=== PATIENT | female | born 1950 | race Caucasian/White ===

== ENCOUNTER 2016-08-10 21:00 | Inpatient (IN) | payer OTHER, MEDICARE ==
[~2016-08-10] VITALS: Ht 157.5 cm; Wt 66.0 kg
[~2016-08-10 21:00] MED LIST: ALL220TA PO; ESTR0.5T PO; ESTRTAB6 PO; LISI-357 PO; REDCAP9 PO; VITA100020 SL; VITA200017 OR
[2016-08-10 21:03] VITALS: BP 209/103; PULSE 72; RESP 18; TEMP 97.9; O2SAT 97
[2016-08-10 21:10] VITALS: BP 186/88; PULSE 64; RESP 16; TEMP 97.9; O2SAT 96
--- NOTE | 2016-08-10 21:21 | PD ---
HPI Chief Complaint: Chest Pain Time Seen by Provider: 21:21 Travel History International Travel<30 days: No Contact w/Intl Traveler<30days: No Traveled to known affect area: No History of Present Illness HPI 66-year-old female with no history of heart disease or angina in the past presents the emergency department with intermittent chest pain with bilateral arm radiation off-and-on for the past week. Patient states the pain is progressed and been consistent all day today with radiation into the left neck and jaw. Patient denies nausea vomiting or fever. She denies cough or significant shortness of breath. Patient states she tried to take a nap today which actually made her symptoms somewhat worse. She states her pain at this time is 8 out of 10. She takes no medications including no aspirin. She is not diabetic. She is a nonsmoker. She has no known drug allergies. PFSH Past Medical History Cancer: Yes (BASAL CELL SKIN CA) Cardiovascular Problems: No High Cholesterol: Yes Diabetes: No Diminished Hearing: No Endocrine: No Genitourinary: Yes (HISTORY OF KIDNEY STONES X 2) Hepatitis: No Hiatal Hernia: No Hypertension: Yes Immune Disorder: No Medical other: Yes (PROLAPSED BLADDER; HIGH CHOLESTEROL ) Musculoskeletal: No Neurologic: No Psychiatric: No Reproductive: Yes (HYSTERECTOMY, COMPLETE 1999) Respiratory: No Immunizations Current: Yes Thyroid Disease: No Menopausal: Yes : 4 Para: 4 Miscarriage: 0 : 0 Past Surgical History Abdominal Surgery: No AICD: No Body Medical Devices: NONE Cardiac Surgery: No Ear Surgery: No Endocrine Surgery: No Eye Surgery: No Genitourinary Surgery: Yes (KIDNEY STONES LITHO X 2) Gynecologic Surgery: Yes (TOTAL HYSTERECTOMY ) Hysterectomy: Yes (1999) Joint Replacement: No Oral Surgery: No Pacemaker: No Thoracic Surgery: No Other Surgery: Yes (MASTOID L SURGERY 1999) Social History Alcohol Use: No Tobacco Use: No Substance Use: No Allergies-Medications (Allergen,Severity, Reaction): Coded Allergies: No Known Allergies (Unverified , 10/14/14) Reported Meds & Prescriptions Reported Meds & Active Scripts Active No Active Prescriptions or Reported Medications Review of Systems Except as stated in HPI: all other systems reviewed are Neg General / Constitutional: No: Fever Eyes: No: Visual changes HENT: No: Headaches Cardiovascular: No: Palpitations, Irregular Rhythm, Tachycardia, Diaphoresis, Syncope, Dyspnea on exertion, Varicosities, Edema, Cyanosis, Varicosities, Phlebitis, Claudication Respiratory: No: Shortness of Breath Gastrointestinal: Positive: Nausea, No: Vomiting, Diarrhea, Abdominal Pain Genitourinary: No: Dysuria Musculoskeletal: No: Pain Skin: No Rash Neurologic: No: Weakness Psychiatric: No: Depression Endocrine: No: Polydipsia Hematologic/Lymphatic: No: Easy Bruising Physical Exam Narrative GENERAL: Patient appears mildly anxious but otherwise no significant distress. SKIN: Warm and dry. Normal color. Normal turgor. HEAD: Atraumatic. Normocephalic. EYES: Pupils equal and round. No scleral icterus. No injection or drainage. ENT: No nasal bleeding or discharge. Mucous membranes pink and moist. Pharynx is clear. Airway is patent. NECK: Trachea midline. No JVD. Neck is supple nontender. CARDIOVASCULAR: Regular rate and rhythm. No murmurs gallops or rubs appreciated. RESPIRATORY: No accessory muscle use. Clear to auscultation. Breath sounds equal bilaterally. GASTROINTESTINAL: Abdomen soft, non-tender, nondistended. Hepatic and splenic margins not palpable. MUSCULOSKELETAL: Extremities without clubbing, cyanosis, or edema. No obvious deformities. NEUROLOGICAL: Awake and alert. No obvious cranial nerve deficits. Motor grossly within normal limits. Five out of 5 muscle strength in the arms and legs. Normal speech. PSYCHIATRIC: Appropriate mood and affect; insight and judgment normal. Data Data Last Documented VS Vital Signs Date Time Temp Pulse Resp B/P Pulse Ox O2 Delivery O2 Flow Rate FiO2 08/10/16 22:00 62 14 168/81 Room Air 08/10/16 21:10 97.9 96 Orders Electrocardiogram (08/10/16 21:24) Ckmb (Isoenzyme) Profile (08/10/16 21:24) Complete Blood Count With Diff (08/10/16 21:24) Comprehensive Metabolic Panel (08/10/16 21:24) Magnesium (Mg) (08/10/16 21:24) Prothrombin Time / Inr (Pt) (08/10/16 21:24) Act Partial Throm Time (Ptt) (08/10/16 21:24) Troponin I (08/10/16 21:24) Chest, Single Ap (08/10/16 21:24) Ecg Monitoring (08/10/16 21:24) Bilateral Bp Monitoring (08/10/16 21:24) Iv Access Insert/Monitor (08/10/16 21:24) Oximetry (08/10/16 21:24) Oxygen Administration (08/10/16 21:24) Aspirin Chew (Aspirin Chew) (08/10/16 21:30) Morphine Inj (Morphine Inj) (08/10/16 21:30) Sodium Chloride 0.9% Flush (Ns Flush) (08/10/16 21:30) Nitroglycerin Sl (Nitrostat Sl) (08/10/16 21:30) Metoprolol Tartrate Inj (Lopressor Inj) (08/10/16 21:30) Sodium Chlorid 0.9% 500 Ml Inj (Ns 500 M (08/10/16 21:30) Labs Laboratory Tests Test 08/10/16 21:35 White Blood Count 8.6 TH/MM3 Red Blood Count 4.60 MIL/MM3 Hemoglobin 14.0 GM/DL Hematocrit 40.7 % Mean Corpuscular Volume 88.4 FL Mean Corpuscular Hemoglobin 30.3 PG Mean Corpuscular Hemoglobin 34.3 % Concent Red Cell Distribution Width 13.6 % Platelet Count 303 TH/MM3 Mean Platelet Volume 8.3 FL Neutrophils (%) (Auto) 48.7 % Lymphocytes (%) (Auto) 34.6 % Monocytes (%) (Auto) 8.1 % Eosinophils (%) (Auto) 3.0 % Basophils (%) (Auto) 5.6 % Neutrophils # (Auto) 4.2 TH/MM3 Lymphocytes # (Auto) 3.0 TH/MM3 Monocytes # (Auto) 0.7 TH/MM3 Eosinophils # (Auto) 0.3 TH/MM3 Basophils # (Auto) 0.5 TH/MM3 CBC Comment DIFF FINAL Differential Comment Prothrombin Time 10.5 SEC Prothromb Time International 1.0 RATIO Ratio Activated Partial 28.0 SEC Thromboplast Time Sodium Level 142 MEQ/L Potassium Level 4.0 MEQ/L Chloride Level 105 MEQ/L Carbon Dioxide Level 32.1 MEQ/L Anion Gap 5 MEQ/L Blood Urea Nitrogen 12 MG/DL Creatinine 0.72 MG/DL Estimat Glomerular Filtration 81 ML/MIN Rate Random Glucose 106 MG/DL Calcium Level 9.3 MG/DL Magnesium Level 2.0 MG/DL Aspartate Amino Transf 14 U/L (AST/SGOT) Alanine Aminotransferase 21 U/L (ALT/SGPT) Albumin 3.6 GM/DL MDM Medical Decision Making Medical Screen Exam Complete: Yes Emergency Medical Condition: Yes Differential Diagnosis Atypical chest pain. Acute PR. Non-STEMI. Angina. Narrative Course Patient appears medically stable at time of exam although somewhat hypertensive on review of vital signs. Labs ordered including CBC, CMP, cardiac panel. EKG is performed showing sinus bradycardia of 59 beats per minute with a minimal ST depression. This is reviewed with Dr. Loya. IV access is obtained and the patient is given 2 mg morphine IV. Patient is given 324 mg chewable aspirin as well as 0.4 mg sublingual nitroglycerin 3. Patient is given metoprolol 5 mg 3 per protocol. Chest x-ray is ordered. X-ray shows no acute process per radiologist. Patient took the aspirin, and one sublingual nitroglycerin and then refused any more. Patient refused 2 mg of morphine IV. Labs are currently pending at 2300 hrs. Care of the patient is assumed by Dr. Hoffman. Final disposition and diagnosis will be determined by her. Scripts No Active Prescriptions or Reported Meds Condition: Stable Ruperto Gabriel Aug 10, 2016 21:21 Ruperto Gabriel Aug 10, 2016 21:21
[2016-08-10] MEDS ORDERED: SODIUM CHLORIDE 0.9% FLUSH 10 ML FLUSH IVF PRN (21:30)
[2016-08-10] MEDS: METOPROLOL TARTRATE 5 MG/5 ML VIAL IVS SCH ×3 (21:30→21:40)
[2016-08-10] MEDS ORDERED: ASPIRIN 81 MG CHEW TAB PO ONE (21:30)
[2016-08-10] MEDS ORDERED: MORPHINE SULFATE 4 MG/ML INJ IV PUSH ONE (21:30)
[2016-08-10] MEDS ORDERED: SODIUM CHLORID 0.9% 500 ML INJ 500 ML IV ONE (21:30)
[2016-08-10] MEDS: NITROGLYCERIN 0.4 MG SL 25 TABS/BTL SL SCH ×3 (21:35→21:51)
[2016-08-10 22:00] VITALS: BP 168/81; PULSE 62; RESP 14
[2016-08-10 22:20] LABS: PROTHROMBIN TIME - PATIENT 10.5 SEC (9.8-11.6)
--- NOTE | 2016-08-10 22:28 | RADRPT ---
EXAM DATE/TIME: 08/10/2016 21:29 [facility] COMPARISON: CHEST SINGLE AP, February 05, 2013, 4:51. INDICATIONS : Chest pain starting today MEDICAL HISTORY : None. SURGICAL HISTORY : None. ENCOUNTER: Initial ACUITY: 1 day PAIN SCORE: 8/10 LOCATION: Left chest FINDINGS: Cardiomegaly. Minimal basilar atelectasis. No effusion. No pneumothorax. CONCLUSION: 1. Minimal basilar atelectasis. Cardiomegaly. No pneumothorax. Kike Fischer MD on August 10, 2016 at 22:26 Board Certified Radiologist. This report was verified electronically.
[2016-08-10 22:36] LABS: ALT (GPT) 21 U/L (10-53); ANION GAP 5 MEQ/L (5-15); AST (GOT) 14 U/L (15-37); BICARBONATE 32.1 MEQ/L (21.0-32.0); BLOOD UREA NITROGEN 12 MG/DL (7-18); CHLORIDE 105 MEQ/L (98-107); GLOMERULAR FILTRATION RATE 81 ML/MIN (>89); SODIUM (NA) 142 MEQ/L (136-145)
[2016-08-10 22:39] LABS: ALKALINE PHOSPHATASE 118 U/L (45-117); TOTAL BILIRUBIN ADULT 0.5 MG/DL (0.2-1.0)
[2016-08-10 22:53] LABS: AUTOMATED NEUTROPHIL # 4.2 TH/MM3 (1.8-7.7); BASOPHIL # 0.5 TH/MM3 (0-0.2); BASOPHIL % 5.6 % (0.0-2.0); EOSINOPHIL # 0.3 TH/MM3 (0-0.4); HEMATOCRIT 40.7 % (35.0-46.0); LYMPH % 34.6 % (9.0-44.0); MEAN CELL VOLUME 88.4 FL (80.0-100.0); MEAN CORPUSCULAR HEMOGLOBIN 30.3 PG (27.0-34.0); MEAN CORPUSCULAR HGB CONC 34.3 % (32.0-36.0); MONO % 8.1 % (0.0-8.0); NEUT % 48.7 % (16.0-70.0); PLATELET COUNT 303 TH/MM3 (150-450); RED CELL DISTRIBUTION WIDTH 13.6 % (11.6-17.2); WHITE BLOOD COUNT 8.6 TH/MM3 (4.0-11.0)
[2016-08-10 22:55] LABS: HEMO FLAGS DIFF FINAL
[2016-08-10 23:23] LABS: CREATINE KINASE 71 U/L (26-192)
--- NOTE | 2016-08-10 23:56 | PD ---
Physical Exam Narrative I, Dr. Hoffman, have reviewed the advance practice practitioner's documentation and am in agreement, met with the patient face to face, made the diagnosis, and the medical decision making was done by me. *My assessment and Findings: Patient is a 66-year-old female who comes in complaining of chest pain. She says she has had episodes of chest pain all week, but today got worse. She reports that the pain radiates to both arms and upper jaw. She does report some shortness of breath as well. Data Data Last Documented VS Vital Signs Date Time Temp Pulse Resp B/P Pulse Ox O2 Delivery O2 Flow Rate FiO2 08/10/16 22:00 62 14 168/81 Room Air 08/10/16 21:10 97.9 96 Orders Electrocardiogram (08/10/16 21:24) Ckmb (Isoenzyme) Profile (08/10/16 21:24) Complete Blood Count With Diff (08/10/16 21:24) Comprehensive Metabolic Panel (08/10/16 21:24) Magnesium (Mg) (08/10/16 21:24) Prothrombin Time / Inr (Pt) (08/10/16 21:24) Act Partial Throm Time (Ptt) (08/10/16 21:24) Troponin I (08/10/16 21:24) Chest, Single Ap (08/10/16 21:24) Ecg Monitoring (08/10/16 21:24) Bilateral Bp Monitoring (08/10/16 21:24) Iv Access Insert/Monitor (08/10/16 21:24) Oximetry (08/10/16 21:24) Oxygen Administration (08/10/16 21:24) Aspirin Chew (Aspirin Chew) (08/10/16 21:30) Morphine Inj (Morphine Inj) (08/10/16 21:30) Sodium Chloride 0.9% Flush (Ns Flush) (08/10/16 21:30) Nitroglycerin Sl (Nitrostat Sl) (08/10/16 21:30) Metoprolol Tartrate Inj (Lopressor Inj) (08/10/16 21:30) Sodium Chlorid 0.9% 500 Ml Inj (Ns 500 M (08/10/16 21:30) Heparin Infusion JOSEPH.Q1H (08/10/16 23:49) Heparin Inj (Heparin Inj) (08/11/16 00:00) Heparin Inj (Heparin Inj) (08/11/16 06:00) Heparin Inj (Heparin Inj) (08/11/16 06:00) Heparin-D5w Inj (Heparin-D5w Inj) (08/11/16 00:00) Cbc No Diff, Includes Plts (08/13/16 06:00) Act Partial Throm Time (Ptt) (08/11/16 06:49) Occult Blood (Hemoccult) Stool (08/10/16 23:49) Aspirin Ec (Ecotrin Ec) (08/11/16 09:00) Pravastatin (Pravachol) (08/11/16 09:00) Metoprolol Tartrate (Lopressor) (08/11/16 09:00) Lipid Profile (08/11/16 04:00) Thyroid Stimulating Hormone (08/11/16 04:00) Hemoglobin (Hgb) A1c (08/11/16 04:00) Nitroglycerin 2% Oint (Nitroglycerin 2% (08/11/16 00:00) Admit To Inpatient (08/10/16 ) Vital Signs (Adult) Q4H (08/10/16 23:47) Activity Oob Ad [place] (08/10/16 23:47) Warehouse Order Picker / Telemetry .CONTINUOUS (08/10/16 23:47) Intake + Output JOSEPH.QSHIFT (08/10/16 23:47) Diet Heart Healthy (08/11/16 Breakfast) Sodium Chlor 0.9% 1000 Ml Inj (Ns 1000 M (08/10/16 23:47) Sodium Chloride 0.9% Flush (Ns Flush) (08/11/16 00:00) Sodium Chloride 0.9% Flush (Ns Flush) (08/11/16 09:00) Ondansetron Inj (Zofran Inj) (08/11/16 00:00) Comprehensive Metabolic Panel (08/11/16 10:00) Complete Blood Count With Diff (08/11/16 10:00) Troponin I (08/11/16 04:00) Troponin I (08/11/16 10:00) Acetaminophen (Tylenol) (08/11/16 00:00) Acetamin-Hydrocod 325-5 Mg ([place] 5-325 (08/11/16 00:00) Morphine Inj (Morphine Inj) (08/11/16 00:00) Docusate Sodium-Senna (Taisha-Colace) (08/11/16 09:00) Magnesium Hydroxide Liq (Milk Of Magnesi (08/11/16 00:00) Sennosides (Senokot) (08/11/16 00:00) Bisacodyl Supp (Dulcolax Supp) (08/11/16 00:00) Lactulose Liq (Lactulose Liq) (08/11/16 00:00) Inpatient Certification (08/10/16 ) Consult Cardiology (08/10/16 ) Admit Order (Ed Use Only) (08/10/16 ) Labs Laboratory Tests Test 08/10/16 21:35 White Blood Count 8.6 TH/MM3 Red Blood Count 4.60 MIL/MM3 Hemoglobin 14.0 GM/DL Hematocrit 40.7 % Mean Corpuscular Volume 88.4 FL Mean Corpuscular Hemoglobin 30.3 PG Mean Corpuscular Hemoglobin 34.3 % Concent Red Cell Distribution Width 13.6 % Platelet Count 303 TH/MM3 Mean Platelet Volume 8.3 FL Neutrophils (%) (Auto) 48.7 % Lymphocytes (%) (Auto) 34.6 % Monocytes (%) (Auto) 8.1 % Eosinophils (%) (Auto) 3.0 % Basophils (%) (Auto) 5.6 % Neutrophils # (Auto) 4.2 TH/MM3 Lymphocytes # (Auto) 3.0 TH/MM3 Monocytes # (Auto) 0.7 TH/MM3 Eosinophils # (Auto) 0.3 TH/MM3 Basophils # (Auto) 0.5 TH/MM3 CBC Comment DIFF FINAL Differential Comment Prothrombin Time 10.5 SEC Prothromb Time International 1.0 RATIO Ratio Activated Partial 28.0 SEC Thromboplast Time Sodium Level 142 MEQ/L Potassium Level 4.0 MEQ/L Chloride Level 105 MEQ/L Carbon Dioxide Level 32.1 MEQ/L Anion Gap 5 MEQ/L Blood Urea Nitrogen 12 MG/DL Creatinine 0.72 MG/DL Estimat Glomerular Filtration 81 ML/MIN Rate Random Glucose 106 MG/DL Calcium Level 9.3 MG/DL Magnesium Level 2.0 MG/DL Total Bilirubin 0.5 MG/DL Aspartate Amino Transf 14 U/L (AST/SGOT) Alanine Aminotransferase 21 U/L (ALT/SGPT) Alkaline Phosphatase 118 U/L Total Creatine Kinase 71 U/L Troponin I 0.09 NG/ML Total Protein 6.8 GM/DL Albumin 3.6 GM/DL MDM Supervised Visit with KRISTINE: Yes Narrative Course IV established, labs sent. Patient connected to the assembly machine tool setter. ECG shows no signs of STEMI. She was given aspirin, nitroglycerin, morphine. Labs show an elevated troponin to 0.09. She is started on heparin. Dr. Fischer of cardiology was consult it. Patient admitted for further management. Diagnosis Primary Impression: NSTEMI (non-ST elevated myocardial infarction) Admitting Information Admitting Physician Requests: Admit Scripts No Active Prescriptions or Reported Meds Condition: Stable Danisha Hoffman MD Aug 10, 2016 23:56
[2016-08-11] VITALS (22 sets, daily range): BP systolic 131–164; BP diastolic 68–87; PULSE 51–96; RESP 16–20; TEMP 97.5–98.1; O2SAT 96–99
[2016-08-11] MEDS ORDERED: NITROGLYCERIN 2% OINT 1 GM PACKET TOPICAL PRN
[2016-08-11] MEDS ORDERED: MAGNESIUM HYDROXIDE SUSP 30 ML CUP PO PRN
[2016-08-11] MEDS ORDERED: HEPARIN SODIUM - IV 10,000 UNITS/10 ML VIAL IV ONE
[2016-08-11] MEDS ORDERED: ACETAMINOPHEN/HYDROcodone 325 MG/5 MG TAB PO PRN
[2016-08-11] MEDS ORDERED: LACTULOSE SYRUP 20 GM/30 ML CUP PO PRN
[2016-08-11] MEDS ORDERED: MORPHINE SULFATE 4 MG/ML INJ IV PRN
[2016-08-11] MEDS ORDERED: ONDANSETRON HCL 4 MG/2 ML VIAL IVP PRN
[2016-08-11] MEDS ORDERED: BISACODYL 10 MG SUPP RECTAL PRN
[2016-08-11] MEDS ORDERED: ACETAMINOPHEN 325 MG TAB PO PRN
[2016-08-11] MEDS ORDERED: SODIUM CHLORIDE 0.9% FLUSH 10 ML FLUSH IV FLUSH PRN
[2016-08-11] MEDS ORDERED: SENNOSIDES 8.6 MG TAB PO PRN
[2016-08-11] MEDS: HEPARIN-D5W INJ 250 ML IV SCH ×2 (00:21→03:30)
[2016-08-11] MEDS: SODIUM CHLOR 0.9% 1000 ML INJ 1,000 ML IV SCH ×2 (01:26→09:47)
--- NOTE | 2016-08-11 03:48 | HHI.HP ---
[facility] Phys[facility] Carmelita Ngo M.D. Admission Diagnosis NSTEMI Diagnoses: (1) NSTEMI (non-ST elevated myocardial infarction) Diagnosis: Principal (2) Chest pain Diagnosis: Principal (3) HTN (hypertension) Diagnosis: Principal Travel History International Travel<30 Days: No Contact w/Intl Traveler <30 Da: No Traveled to Known Affected Are: No History of Present Illness This is a 66-year-old female with a PMH of Hyperlipidemia and Basal Cell Ca who presented to the ER with complaints of chest pain x1 wk. States symptoms have been intermittent w/ occasional radiation to left neck, not associated w/ exertion. No h/o similar symptoms in the past. Denies fever, chills or cough. On arrival, BP 209/103, HR 72, O2 sat 97% on RA, Afebrile. CBC unremarkable. Chemistry essentially unremarkable except for GFR 81. Troponin 0.09. INR 1.0. CXR with minimal basilar atelectasis. EKG w/ minimal ST depressions. Dr. Fischer consulted by ER physician, will evaluate. Currently on Heparin gtt. Review of Systems Except as stated in HPI: all other systems reviewed are Neg ROS: 14 point review of systems otherwise negative. Past Family Social History Past Medical History PMH: Hyperlipidemia and Basal Cell Ca Past Surgical History PAST SURGICAL HISTORY: Hysterectomy, Lithotripsy Allergies: Coded Allergies: No Known Allergies (Unverified , 10/14/14) Family History PAST FAMILY HISTORY: Reviewed. No h/o DM or CAD Social History PAST SOCIAL HISTORY: Negative for alcohol, tobacco or drugs. Physical Exam Vital Signs Vital Signs Date Time Temp Pulse Resp B/P Pulse Ox O2 Delivery O2 Flow Rate FiO2 08/11/16 00:00 69 16 135/74 97 08/10/16 22:00 62 14 168/81 Room Air 08/10/16 21:10 97.9 64 16 186/88 96 08/10/16 21:03 97.9 72 18 209/103 97 Room Air Physical Exam PE: GENERAL: Pleasant middle-aged female in no acute distress. HEENT: PERRLA, EOMI. No scleral icterus or conjunctival pallor. No lid lag or facial droop. CARDIOVASCULAR: Regular rate and rhythm. No obvious murmurs to auscultation. No chest tenderness to palpation. RESPIRATORY: No obvious rhonchi or wheezing. Clear to auscultation. Breath sounds equal bilaterally. GASTROINTESTINAL: Abdomen soft, non-tender, nondistended. BS normal. MUSCULOSKELETAL: Extremities without clubbing, cyanosis, or edema. No obvious deformities. NEUROLOGICAL: Awake, alert and oriented x4. No focal neurologic deficits. Moving both upper and lower extremities spontaneously. Laboratory Laboratory Tests Test 08/10/16 21:35 White Blood Count 8.6 Red Blood Count 4.60 Hemoglobin 14.0 Hematocrit 40.7 Mean Corpuscular Volume 88.4 Mean Corpuscular Hemoglobin 30.3 Mean Corpuscular Hemoglobin 34.3 Concent Red Cell Distribution Width 13.6 Platelet Count 303 Mean Platelet Volume 8.3 Neutrophils (%) (Auto) 48.7 Lymphocytes (%) (Auto) 34.6 Monocytes (%) (Auto) 8.1 Eosinophils (%) (Auto) 3.0 Basophils (%) (Auto) 5.6 Neutrophils # (Auto) 4.2 Lymphocytes # (Auto) 3.0 Monocytes # (Auto) 0.7 Eosinophils # (Auto) 0.3 Basophils # (Auto) 0.5 CBC Comment DIFF FINAL Differential Comment Prothrombin Time 10.5 Prothromb Time International 1.0 Ratio Activated Partial 28.0 Thromboplast Time Sodium Level 142 Potassium Level 4.0 Chloride Level 105 Carbon Dioxide Level 32.1 Anion Gap 5 Blood Urea Nitrogen 12 Creatinine 0.72 Estimat Glomerular Filtration 81 Rate Random Glucose 106 Calcium Level 9.3 Magnesium Level 2.0 Total Bilirubin 0.5 Aspartate Amino Transf 14 (AST/SGOT) Alanine Aminotransferase 21 (ALT/SGPT) Alkaline Phosphatase 118 Total Creatine Kinase 71 Troponin I 0.09 Total Protein 6.8 Albumin 3.6 Result Diagram: 08/10/16213408/10/162134 Assessment and Plan Problem List: (1) NSTEMI (non-ST elevated myocardial infarction) ICD Code: I21.4 Status: Acute (2) Chest pain ICD Code: R07.9 Status: Acute (3) HTN (hypertension) ICD Code: I10 Status: Acute Assessment and Plan A/P: 1. NSTEMI: Trop 0.09, EKG w/ minimal ST Depressions, c/o intermittent chest pain x1 wk. Dr. Fischer consulted by ER physician, will evaluate in am, currently on Heparin gtt. Admit to [facility], telemetry, continue Heparin. 2. Chest Pain: ACS. Trop 0.09 as above, check serial cardiac enzymes, check Lipid Profile, TSH, Hgb A1c. Start ASA, Statin, B-afia, continue w/ Heparin gtt. NTG/Morphine prn. 3. HTN: Uncontrolled. No h/o HTN. BP on arrival, 209/103, HR 72, BP currently 135/74, HR 69, continue w/ Metoprolol. Monitor BP. 4. DVT Prophylaxis: Heparin gtt 5. Social work for d/c planning as needed. 6. Case discussed w/ ER physician at length. Physician Certification 2 Midnight Certification Type: Admission for Inpatient Services Order for Inpatient Services The services are ordered in accordance with Medicare regulations or non- Medicare payer requirements, as applicable. In the case of services not specified as inpatient-only, they are appropriately provided as inpatient services in accordance with the 2-midnight benchmark. Estimated LOS (days): 2 days is the estimated time the patient will need to remain in the hospital, assuming treatment plan goals are met and no additional complications. Post-Hospital Plan: Not yet determined Brandie Camejo MD Aug 11, 2016 03:48
[2016-08-11 04:57] LABS: APTT (PATIENT) 54.4 SEC (24.3-30.1)
[2016-08-11 05:09] LABS: LDL CHOLESTEROL 117 MG/DL (0-99)
[2016-08-11] MEDS ORDERED: HEPARIN SODIUM - IV 10,000 UNITS/10 ML VIAL IV PRN ×2 (06:00)
[2016-08-11] MEDS: METOPROLOL TARTRATE 25 MG TAB PO SCH ×2 (09:00→21:33)
[2016-08-11] MEDS: SODIUM CHLORIDE 0.9% FLUSH 10 ML FLUSH IV FLUSH SCH ×2 (09:00→21:34)
[2016-08-11] MEDS: PRAVASTATIN SOD 40 MG TAB PO SCH (10:02)
[2016-08-11] MEDS: ASPIRIN EC 81 MG TABEC PO SCH (10:02)
[2016-08-11] MEDS: DOCUSATE SODIUM 50 MG/SENNA 8.6 MG TAB PO SCH ×2 (10:03→21:00)
[2016-08-11] MEDS ORDERED: NITROGLYCERIN 0.4 MG SL 25 TABS/BTL SL ONE (10:37)
[2016-08-11] MEDS ORDERED: NITROGLYCERIN-DEXTROSE INJ 250 ML ONE (10:47)
[2016-08-11] MEDS ORDERED: NITROGLYCERIN 0.4 MG SL 25 TABS/BTL SL SCH (11:00)
[2016-08-11] MEDS ORDERED: HEPARIN-NS/PF INJ 500 ML ONE (11:49)
[2016-08-11] MEDS ORDERED: IOHEXOL 350 MG/ML 100 ML BTL (for Cath Lab) OTHER ONE (12:10)
[2016-08-11 12:16] LABS: BASOPHIL # 0.1 TH/MM3 (0-0.2); BASOPHIL % 1.6 % (0.0-2.0); EOSINOPHIL # 0.2 TH/MM3 (0-0.4); EOSINOPHIL % 2.8 % (0.0-4.0); HEMATOCRIT 43.6 % (35.0-46.0); HEMO FLAGS DIFF FINAL; LYMPH % 28.3 % (9.0-44.0); LYMPHOCYTE # 2.3 TH/MM3 (1.0-4.8); MEAN CELL VOLUME 89.4 FL (80.0-100.0); MEAN CORPUSCULAR HEMOGLOBIN 30.7 PG (27.0-34.0); MEAN CORPUSCULAR HGB CONC 34.3 % (32.0-36.0); MONO % 6.6 % (0.0-8.0); NEUT % 60.7 % (16.0-70.0); PLATELET COUNT 298 TH/MM3 (150-450); RED BLOOD COUNT 4.87 MIL/MM3 (4.00-5.30); RED CELL DISTRIBUTION WIDTH 13.6 % (11.6-17.2); WHITE BLOOD COUNT 8.2 TH/MM3 (4.0-11.0)
[2016-08-11 12:19] LABS: APTT (PATIENT) 41.3 SEC (24.3-30.1)
[2016-08-11] MEDS ORDERED: MIDAZOLAM HCL 5 MG/5 ML VIAL ONE (12:19)
[2016-08-11 12:23] LABS: ALT (GPT) 19 U/L (10-53); ANION GAP 12 MEQ/L (5-15); AST (GOT) 23 U/L (15-37); CHLORIDE 106 MEQ/L (98-107); GLOMERULAR FILTRATION RATE 116 ML/MIN (>89); POTASSIUM 3.7 MEQ/L (3.5-5.1); SODIUM (NA) 141 MEQ/L (136-145)
[2016-08-11 12:25] LABS: ALKALINE PHOSPHATASE 122 U/L (45-117); TOTAL BILIRUBIN ADULT 0.6 MG/DL (0.2-1.0)
[2016-08-11 12:38] LABS: BLOOD UREA NITROGEN 10 MG/DL (7-18)
[2016-08-11 12:38] LABS: HEMOGLOBIN A1a 1.1 %; HEMOGLOBIN A1b 1.4 %; HEMOGLOBIN Ao 86.9 %; HEMOGLOBIN LA1C 1.8 %; HEMOGLOBIN P3 3.2 %
[2016-08-11] MEDS ORDERED: BIVALIRUDIN 250 MG VIAL ONE (12:48)
[2016-08-11] MEDS ORDERED: PRASUGREL 10 MG TAB ONE (13:05)
[2016-08-11] MEDS ORDERED: SODIUM CHLOR 0.9% 1000 ML INJ 1,000 ML IV SCH (13:28)
[2016-08-11] MEDS ORDERED: PRASUGREL 10 MG TAB PO ONE (13:30)
[2016-08-11] MEDS ORDERED: MISC INFORMATION XX ONE (13:30)
[2016-08-11] MEDS ORDERED: ATROPINE SULFATE 1 MG/ML VIAL IV PRN (13:30)
[2016-08-11] MEDS ORDERED: ONDANSETRON HCL 4 MG/2 ML VIAL IV PRN (13:30)
--- NOTE | 2016-08-11 13:31 | CATHPROC ---
[facility] HIS Report Study Information Study Number Scheduled Start Study Start [id number] 08/11/2016 Aug 11 2016 12:01PM Referring Institution Admit Source Facility Department 1 Emergency department [facility] - [facility] Applicator Physician and Clinical Staff Initial Gab Venegas Philosophy Instructor Sachin Scott,RN Philosophy Instructor Maricruz Grimm,CAMACHO/BA Recorder Bernardo Tate,RT(R) Scrub Claribel Barrow,DINING SERVICE SUPERVISOR TECH2 Procedures Performed Procedure Location (Site) Vessel Name Coronary Angiograms LCA Left Coronary Coronary Angiograms RCA Right Coronary Drug Eluting Inflatio LAD Mid Left Coronary Drug Eluting Inflatio OM1 Prox CIRC L Heart Cath LV Gram-hand inj. LV LV Ventricle Wire insertion Fem Art (right) Femoral Art Equipment Time Distance Education Faculty Liaison Description Size Mfg Part Number Used/Scraped COPILOT VALVE, BLEEDBACK [id number] 12:49 [employer] Used CONTROL *[id number] PERCLOSE, PRO GLIDE CLOSER 13:09 [employer] FR 6 [id number] *[id number] Used DEVICE STENT, 2.75 X 12MM XIENCE [id number] 13:06 [employer] 2.75 X 12 Used ALPINE *[id number] STENT, 2.75 X 15MM XIENCE [id number] 12:58 [employer] 2.75 X 15 Used ALPINE *[id number] TRANSDUCER, TRUWAVE [id number] 12:06 COSME CAMERON * Used W/STOCKCOCK *[id number]-502-10.0- INTRODUCER SET, 12:06 [employer]. FR 5 SC-[id number]-U-[id number] Used MICROPUNCTURE, STIFFENED *[id number] [id number] *[id number] [id number] *[id number] *[id number] 12:06 Industry [employer]apon INDUSTRIES PACK, CCL CUSTOM * Used *[id number] 12:59 MaestroDev 30 INDU INDEFLATOR Used *[id number] 12:06 [employer] WIRE, 3MMJ .035 180CM 180CM Used *[id number] 12:06 NAMIC MANIFOLD, 4 PORT * Used *[id number] 12:06 NYCOMED OMNIPAQUE, 350 MG, 150ML 150ML [id number] Used [id number] 12:06 ROVER [employer] BLANKET,WARM AIR CCL * Used *[id number] 12:06 TERUMO [employer]ICAL SHEATH, FR5 TERUMO (10CM) FR 5 [id number] Used 12:49 [employer] SHEATH, FR6 TERUMO (10CM) FR 6 [id number] Used SHEATH, FR6 TRANSRADIAL 12:06 TERUMO MEDICAL FR 6 [id number] Used SLENDER 10CM WIRE, RUNTHROUGH NS FLOPPY [id number] 12:49 TERUMO MEDICAL 180CM Used .014 180CM *[id number] Equipment Model, Serial, Lot Number and Expiration Data Description Model Number Serial Number Lot Number Expiration Date STENT, 2.75 X 12MM XIENCE [id number] 02-05-2019 ALPINE STENT, 2.75 X 15MM XIENCE [id number] 04-19-2019 ALPINE History: Allergies Allergy Reaction No Known Allergies History: Risk Factors Family History of Hypertension Dyslipidemia Previous SD Previous Heart Failure Premature CAD Yes Yes No No No Prior Valve Prior PCI Prior CABG Surgery No No No Cerebrovascular Peripheral Artery Chronic Lung On Dialysis Diabetes Disease Disease Disease No No No No No History: Stress Tests Stress or Imaging Studies Performed No History: Other Current Smoker No Labs Hgb (g/dl) Hct (%) RBC (MIL/MM3) WBC (l/cumm) Platelets (thousands) 12.00-18.00 37.00-55.00 4.80-6.20 4.80-10.80 140.00-450.00 14.0 40.7 4.6 8.6 303 Glucose (mg/dl) BUN (mg/dl) Creatinine (mg/dl) BUN:Creatinine (1:x) 60.00-110.00 8.00-20.00 0.10-9.00 10.00-20.00 106 12 0.7 17.1 Na (meq/l) K (meq/l) Cl (meq/l) CO2 (mmol/L) 138.00-146.00 3.80-5.10 101.00-111.00 23.00-30.00 142 4 105 32.1 PT (sec) INR (PTT:PT) 9.40-11.40 0.50-2.00 10.5 1 Troponin I (ng/ml) CPK-MB (ng/ML) 0.40-2.30 0.00-7.00 1.52 Not Drawn Medication Medication Total Dose (Bolus/Oral) Medication Total Dosage/Unit 1% XYLOCAINE 10 mL ANGIOMAX BOLUS 10 mL EFFIENT 60 mg FENTANYL 50 mcg VERSED 1 mg Medications (Bolus/Oral) Medication Time Given Dosage/Unit Administered By Reason VERSED 08/11/2016 12:25:35 PM 1 mg Patient arrived on 1 mg VERSED in Left Antecubital via Peripheral IV. Ordered by Gab Echevarria. FENTANYL 08/11/2016 12:26:44 PM 25 mcg Sachin Scott 25 mcg FENTANYL given in lab by Sachin Scott, CAMACHO in Left Antecubital via Peripheral IV. Ordered by Gab Echevarria. 1% XYLOCAINE 08/11/2016 12:40:12 PM 10 mL Gab Ecehvarria 10 mL 1% XYLOCAINE given in lab by Gab Echevarria in Right Groin via Subcutaneous. Ordered by Gab Berumen. ANGIOMAX BOLUS 08/11/2016 12:51:37 PM 10 mL Maricruz Grimm 10 mL ANGIOMAX BOLUS given in lab by Maricruz Grimm, RN/BA in Left Antecubital via Peripheral IV. Ordered by Gab Echevarria. FENTANYL 08/11/2016 1:10:43 PM 25 mcg Maricruz Grimm 25 mcg FENTANYL given in lab by Maricruz Grimm, RN/BA in Left Antecubital via Peripheral IV. Ordered by Gab Walker. EFFIENT 08/11/2016 1:15:16 PM 60 mg Sachin Scott 60 mg EFFIENT given in lab by Sachin Scott, RN via Oral. Ordered by Gab Echevarria. Medication (Drip) Medication Time Given Dosage/Unit Concentration/Unit Diluent (ml) Solution ANGIOMAX DRIP 08/11/2016 12:53:22 PM 1.752 mg/kg/hr 250 mg 50 NaCl .9 1.752 mg/kg/hr ANGIOMAX DRIP given in lab by Maricruz Grimm, RN/BA in Left Antecubital via Peripheral IV. Pump/Drip Flow = 23.3 ml/hr using NaCl .9 with a concentration of 250 mg in 50 ml. Ordered by Gab Echevarria. NITROGLYCERIN DRIP 08/11/2016 12:22:01 PM 10 mcg/min 50 mg 250 D5W Patient arrived on 10 mcg/min NITROGLYCERIN DRIP given by Gab Echevarria in Left Antecubital via P eripheral IV. Pump/Drip Flow = 3 ml/hr using D5W with a concentration of 50 mg in 250 ml. Ordered by Gab Echevarria. NITROGLYCERIN DRIP 08/11/2016 12:46:22 PM 0 mcg/min 50 mg 250 D5W 0 mcg/min NITROGLYCERIN DRIP given in lab by Gab Echevarria via Peripheral IV. Pump/Drip Flow = 0 ml/hr using D5W with a concentration of 50 mg in 250 ml. Ordered by Gab Echevarria. stopped per Dr. Fischer Initial Case Assessment Cardiovascular HR Rhythm NIBP Chest Pain 53 sr 130/73 2 Edema Present Skin color Skin None Normal Warm Dry Circulatory - Right Pulses Dorsalis Pedis Femoral 3 3 Scale (0,1,2,3,4,d) Circulatory - Left Pulses Dorsalis Pedis Femoral 3 3 Scale (0,1,2,3,4,d) Neurological State Oriented to time-place- Alert Moves all extremities person Respiration - General Respiration Rate SpO2 (%) O2 (lpm) (B/min) 18 96 2 Final Case Assessment Cardiovascular HR Rhythm NIBP Chest Pain 52 sr 113/62 0 Edema Present Skin color Skin None Normal Warm Dry Circulatory - Right Pulses Dorsalis Pedis Femoral 3 3 Scale (0,1,2,3,4,d) Circulatory - Left Pulses Dorsalis Pedis Femoral 3 3 Scale (0,1,2,3,4,d) Neurological State Oriented to time-place- Alert Moves all extremities person Respiration - General Respiration Rate SpO2 (%) O2 (lpm) (B/min) 18 99 2 Chronological Log Time Study Chronological Log 12:12:54 Patient arrived via Bed. 12:12:56 Patient Name, D.O.B, / Armband Verified By R.N. 12:12:57 Consent signed by the physician and the patient and verified by the [employer] staff. 12:12:58 Pre-op and post- op instructions given; patient acknowledges understanding of instructions. 12:13:00 Verbal Stimulation=2 Physical Stimulation=2 Airway=2 Respiration=2 TOTAL=8. (0=absent, 1=li mited, 2=present) 12:13:11 Presedation assessment performed by Cementer Machine Applicator RN. 12:: Patient has been NPO for More than 6Hrs. Vitals capture started with the following parameters, Patient=Adult, Interval=5 min, Initial Pr vetywd=261 mmHg, 12:19:53 Deflation Rate=5 mmHg 12::27 Vitals capture stopped. Vitals capture started with the following parameters, Patient=Adult, Interval=5 min, Initial Pr wuxfih=114 mmHg, 12:20:55 Deflation Rate=5 mmHg 12:21:00 Skin Breakdown- none present per patient. 12:: Patient Warmer Placed on the Table. 12:21:34 HR=55 bpm, MFXQ=776/73 mmhg, SpO2=96.0 %, Resp=12 B/min 12:21:47 A # 20 IV was noted in the Antecubital (left). Grade = 0 Patient arrived on 10 mcg/min NITROGLYCERIN DRIP given by Gab Echevarria in Left Antecubital via Peripheral IV. 12:22:01 Pump/Drip Flow = 3 ml/hr using D5W with a concentration of 50 mg in 250 ml. Ordered by Gab Bateman. Assessment: Initial Case, HR=53 BPM, Rhythm=sr, XHRV=060/73 mmhg, Chest Pain=2, Edema=None, Col or=Normal, Skin = Warm, Dry Right Pulses: Juan Antonio Ped=3, Femoral=3 12:22:20 Left Pulses: Juan Antonio Ped=3, Femoral=3 Neurological: State=Alert, Ox3, MONET Respiration: Resp=18 B/min, SpO2=96 %, O2=2 lpm 12:22:57 Bilateral groins prepped with 2% chlorhexidine, and with a 3 min. waiting time. 12:24:30 Pressure channel 1 zeroed. 12::57 Reference ECG taken 12:25:35 Patient arrived on 1 mg VERSED in Left Antecubital via Peripheral IV. Ordered by Gab Echevarria. 12:26:35 HR=52 bpm, KHJI=952/57 mmhg, SpO2=90.0 %, Resp=12 B/min, Barker=2 12:26:44 25 mcg FENTANYL given in lab by Sachin Scott, RN in Left Antecubital via Peripheral IV. O rdered by Gab Echevarria. 12:31:30 HR=48 bpm, HMRO=923/54 mmhg, SpO2=97.0 %, Resp=9 B/min, Barker=2 12:36:05 MD arrived. 12:36:27 HR=49 bpm, MAUS=405/55 mmhg, SpO2=97.0 %, Resp=11 B/min, Barker=2 Time Out. Correct patient, correct procedure,correct physician, ,power injector not loaded with contrast with surgical 12:39:20 team present. Time Out Concurred by MD, individual staff and MOLDING TECHNICIAN in procedure. Not loaded at t his time. 12:39:59 Presedation re-assessment performed by Cementer Machine Applicator RN. 12:40:01 Case Start 12:40:02 Verbal Stimulation=2 Physical Stimulation=2 Airway=2 Respiration=2 TOTAL=8. (0=absent, 1=li mited, 2=present) 10 mL 1% XYLOCAINE given in lab by Gab Echevarria in Right Groin via Subcutaneous. Ordered b y Wale, 12:40:12 Gab. 12:41:28 HR=49 bpm, TRMU=355/61 mmhg, SpO2=97.0 %, Resp=10 B/min, Barker=2 12:41:32 Access site was Right Femoral Artery. A INTRODUCER SET, MICROPUNCTURE, STIFFENED FR 5 was advanced into the Fem Art (right) using the 12:41:39 Percutaneous technique. A SHEATH, FR5 TERUMO (10CM) FR 5 was exchanged in the Fem Art (right). This was necessary in or demetrice to 12:42:04 accomodate a larger catheter. Recorded Pressure: FA, HR=50, Condition=Condition 1 12:43:29 (Femoral Artery) FA 112/54/75 12:43:49 An injection in the Fem Art (right) was made through the SHEATH, FR5 TERUMO (10CM) FR 5. A JR 4.0 INFINITI CATHETER FR 5 was advanced over a wire. OMNIPAQUE, 350 MG, 150ML 150ML was us ed for 12:44:06 injections. Recorded Pressure: LV, HR=50, Condition=Condition 1 12:44:54 (Left Ventricle) LV 107/4/8 12:45:07 The LV was manually injected with 10 cc's and visualized. OMNIPAQUE, 350 MG, 150ML 150ML us ed. Recorded Pressure: LV, Ao, HR=51, Condition=Condition 1 12:45:22 (Left Ventricle) LV 108/-1/7, (Aorta) Ao 121/64/87 12:45:31 The RCA was injected and visualized at various angles. OMNIPAQUE, 350 MG, 150ML 150ML used . Recorded Pressure: Ao, HR=50, Condition=Condition 1 12:45:46 (Aorta) Ao 114/62/82 12:46:06 Catheter was removed 0 mcg/min NITROGLYCERIN DRIP given in lab by Gab Echevarria via Peripheral IV. Pump/Drip Timothy w = 0 ml/hr using 12:46:22 D5W with a concentration of 50 mg in 250 ml. Ordered by Gab Echevarria. stopped per Dr. Fischer 12:46:30 HR=53 bpm, IJDV=019/59 mmhg, SpO2=96.0 %, Resp=10 B/min, Barker=2 12:46:45 Catheter was removed A JL 4.0 INFINITI CATHETER FR 5 was advanced over a wire. OMNIPAQUE, 350 MG, 150ML 150ML was us ed for 12:46:46 injections. 12:47:02 The LCA was injected and visualized at various angles. OMNIPAQUE, 350 MG, 150ML 150ML used . 12:49:20 Catheter was removed A SHEATH, FR6 TERUMO (10CM) FR 6 was exchanged in the Fem Art (right). This was necessary in or demetrice to 12:51:02 accomodate a larger catheter. A XB 3.5 GUIDE CATHETER FR 6 was advanced over a wire. OMNIPAQUE, 350 MG, 150ML 150ML was used for 12:51:15 injections. 12:51:27 HR=56 bpm, EPGT=770/70 mmhg, SpO2=98.0 %, Resp=20 B/min, Barker=2 10 mL ANGIOMAX BOLUS given in lab by Maricruz Grimm, RN/BA in Left Antecubital via Peripheral IV. O rdered by Fischer- 12:51:37 Etienne Gab. 1.752 mg/kg/hr ANGIOMAX DRIP given in lab by Maricruz Grimm, RN/BA in Left Antecubital via Peripher al IV. Pump/Drip 12:53:22 Flow = 23.3 ml/hr using NaCl .9 with a concentration of 250 mg in 50 ml. Ordered by Gab Echevarria. 12:54:24 A WIRE, RUNTHROUGH NS FLOPPY .014 180CM 180CM was inserted via Fem Art (right). 12:56:21 Interventional wire has crossed the lesion 12:56:30 HR=51 bpm, ZXDQ=049/67 mmhg, SpO2=96.0 %, Resp=11 B/min, Barker=2 A STENT, 2.75 X 15MM XIENCE ALPINE 2.75 X 15 was advanced through a XB 3.5 GUIDE CATHETER FR 6 over a WIRE, 12:57:49 3MMJ .035 180CM 180CM. A STENT, 2.75 X 15MM XIENCE ALPINE 2.75 X 15 was deployed using a 30 INDU INDEFLATOR at 12 atmos pheres for 12:58:11 10 seconds in the OM1 Prox. 12:59:52 Delivery device removed 13:01:31 HR=50 bpm, HVAZ=980/62 mmhg, SpO2=97.0 %, Resp=10 B/min, Barker=2 13:02:02 Wire pulled back and rewired down LAD. 13:02:22 Interventional wire has crossed the lesion A STENT, 2.75 X 12MM XIENCE ALPINE 2.75 X 12 was advanced through a XB 3.5 GUIDE CATHETER FR 6 over a WIRE, 13:04:24 RUNTHROUGH NS FLOPPY .014 180CM 180CM. A STENT, 2.75 X 12MM XIENCE ALPINE 2.75 X 12 was deployed using a 30 INDU INDEFLATOR at 14 atmos pheres for 13:06:01 18 seconds in the LAD Mid. 13:06:30 HR=49 bpm, JZJY=856/62 mmhg, SpO2=97.0 %, Resp=9 B/min, Barker=2 13:06:31 Delivery device removed 13:08:17 Wire removed 13:08:25 Catheter was removed 13:09:01 PERCLOSE, PRO GLIDE CLOSER DEVICE FR 6 placement in the Fem Art (right) Assessment: Final Case, HR=52 BPM, Rhythm=sr, LVZD=163/62 mmhg, Chest Pain=0, Edema=None, Color =Normal, Skin = Warm, Dry Right Pulses: Juan Antonio Ped=3, Femoral=3 13:10:38 Left Pulses: Juan Antonio Ped=3, Femoral=3 Neurological: State=Alert, Ox3, MONET Respiration: Resp=18 B/min, SpO2=99 %, O2=2 lpm 25 mcg FENTANYL given in lab by Maricruz Grimm, RN/BA in Left Antecubital via Peripheral IV. Ordere d by Wale, 13:10:43 Gab. 13:11:23 Catheter(s) removed without difficulty 13:11:27 HR=55 bpm, UQWJ=021/78 mmhg, SpO2=97.0 %, Resp=17 B/min, Barker=2 13:11:32 Case End 13:11:34 Sterile dressing applied to site 13:11:36 No case complications noted. 13:11:38 Cine recording checked. 13:11:41 Bedside Report will be given. 13:11:43 Implantable Device card placed in patient's chart. 13:11:47 Contrast Scanned 13:13:48 A Left Heart Cath was performed. 13:15:16 60 mg EFFIENT given in lab by Sachin Scott, CAMACHO via Oral. Ordered by Gab Echevarria. 13:16:34 HR=48 bpm, ADZV=058/62 mmhg, SpO2=95.0 %, Resp=9 B/min, Barker=2 13:18:53 Vitals capture stopped. 13:22:22 Patient moved to stretcher 13:25:44 Implantable Device card placed in patient's chart. 13:25:44 Implantable Device card placed in patient's chart. End Study - Contrast Media Used In Study Contrast Total Opened (mL) Total Used (mL) Total Wasted (mL) Omnipaque 120 120 0 End Study - Maximum Contrast Load Max Contrast Load (mL) 475.0 End Study - Radiation Exposure Fluoro Time (minutes) 6.7 End Study - Patient Disposition Complications Transferred To Interventional Outcome No Telemetry Bed successful
--- NOTE | 2016-08-11 15:52 | MB ---
cc: BRENDEN VARGAS DATE OF CONSULTATION 08/11/16 DATE OF 1950 REASON FOR CONSULTATION Chest pain. HISTORY OF PRESENT ILLNESS 66-year-old female with past medical history significant for hyperlipidemia, skin basal cell cancer that presents to the hospital for evaluation of chest pain for 1 week. She reports that in the last week she has been having this left-sided chest pressure on exertion which has increased in intensity and severity, radiating to the left side of the shoulder and jaw. She denies fevers , chills, nausea, vomiting, diarrhea, trauma to the chest or recent viral infections. In the emergency department evaluation EKG showed normal sinus rhythm with nonspecific ST changes. First set of cardiac marker was 0.09. The patient was admitted to the [facility] for rule out CO. She was started on heparin drip, aspirin, beta blockers and p.r.n. nitroglycerin and morphine. This a.m. the patient had recurrent chest pressure. Her troponin trended up to 1.5, EKG unchanged. Started on Nitro drip. REVIEW OF SYSTEMS Negative except for what is mentioned in the HPI. PAST MEDICAL HISTORY Past medical history of hyperlipidemia, basal cell cancer. PAST SURGICAL HISTORY Hysterectomy. Lithotripsy. HOME MEDICATIONS: NONE ALLERGIES NO KNOWN DRUG ALLERGIES. FAMILY HISTORY No history of premature heart disease or diabetes. SOCIAL HISTORY She denies alcohol use, tobacco use or illicit drug use. PHYSICAL EXAMINATION VITAL SIGNS: Vital signs: Temperature 97.7, respiratory rate 16, pulse 60, blood pressure 164/87, O2 sats 96% room air. GENERAL: She is awake, alert, oriented x3, complaining of mild chest discomfort on the left side. NECK: No JVD, no carotid bruits. HEART: Regular rate and rhythm. No murmurs, rubs or gallops. LUNGS: Clear to auscultation bilaterally. No wheezes or rhonchi or rales. ABDOMEN: Soft, nontender, nondistended with positive bowel sounds. EXTREMITIES: No cyanosis or edema and pulses throughout. DATA CBC, hemoglobin 14, hematocrit of 40, platelet count 103, INR 1. Chemistries: Sodium 142, potassium 4.0, chloride 105, bicarb 32, BUN 12, creatinine 0.72. Troponin 0.09 and 1.52. Triglycerides 140, cholesterol 193, LDL 117, HDL 48 TSH 4.7. IMAGING STUDIES Chest x-ray no acute cardiopulmonary process. CARDIOLOGY STUDIES EKG, sinus bradycardia with nonspecific ST changes. ASSESSMENT/PLAN 66-year-old female with cardiac risk factors that include hyperlipidemia and age that presents with angina. She has ruled in for CO. She remains hemodynamically stable, however, is still complaining of chest pain despite optimization of medical therapy. She has been started on nitro drip. At this time I think it would be reasonable to take her to the cardiac fish farm laborer for an early invasive strategy. The risks and benefits of left heart cath/PCI including but not limited to bleeding, kidney failure, infection, neurovascular trauma, emergent bypass surgery, stroke and have been explained to the patient. The patient understands the risks and she is willing to proceed. RECOMMENDATIONS 1. Keep n.p.o. for left heart cath now. 2. Continue heparin drip, nitro drip, aspirin, metoprolol and statin. 3. Get a 2D echocardiogram. Further therapy to be determined. The case has been discussed with the patient as well as with the nursing staff and the patient's family. Thank you for the opportunity to take part in the care of this patient. MD EZEKIEL Jenkins/EO /11:18 AM /3:31 PM PERNELL
--- NOTE | 2016-08-11 17:42 | MA ---
cc: BRENDEN ALVAREZ DATE: 08/11/2016. PROCEDURE PERFORMED: 1. Left heart catheterization. 2. Selective right and left coronary angiography. 3. Left ventriculogram. 4. Successful percutaneous coronary intervention to obtuse marginal #1. 5. Successful percutaneous coronary intervention to mid left anterior descending. INDICATIONS FOR THE PROCEDURE: Ihl-NG-rouiotwvn MO / ongoing chest pain. DESCRIPTION OF PROCEDURE: Consent signed. The patient was brought into the cardiac engineer geophysical laboratory in a fasting state. The right groin was prepped and draped in sterile fashion using 1% lidocaine for local anesthesia and micropuncture kit. A 5-Hungarian sheath was inserted into the right common femoral artery. A right common femoral artery angiography was performed to confirm position of the sheath. Then selective right and left coronary angiography was performed a JR-4 diagnostic catheter. Angiography was taken in multiple views. All catheters were exchanged over a wire. The JR-4 diagnostic catheter was introduced to the left ventricle over a wire. This was followed by pressure recordings, left ventriculogram and pullback. We identified a 99% lesion in the OM1 which is a culprit lesion for the nfu-GS-pdnkwvsjo myocardial infarction. In addition there was a 70% lesion in the mid LAD. Thus we proceeded to treat the lesions percutaneously. For this, the 5-Hungarian sheath was exchanged to a 6-Hungarian sheath guide. Angiomax was given for IV anticoagulation. The left main was engaged with an EBU 3.5 guide. The OM1 vessel was wired with a run-through wire which was anchored distally in the OM. This was followed by direct stent with drug-eluting stent 2.75 x 15 which was inflated to high atmospheres. Final angiographic views revealed good stent position and expansion with SURINDER III flow. Then we proceeded to wire the LAD with a run-through wire. The wire was anchored distally in the LAD. This was followed by direct stenting of the mid lesion with a 2.75 x 12 drug-eluting stent which was inflated to high atmospheres. Final angiographic views revealed good stent apposition and expansion with SURINDER III flow. The patient tolerated the procedure well without complications. Estimated blood loss less than 30 mL. Total contrast used 120 mL. The right groin access site was closed with a Perclose device. The patient was Effient loading after the procedure. RESULTS: 1. Left ventricle. The left ventricular pressure was 108/-1 with an left ventricular end diastolic pressure of 7. The aortic pressure was 114/62 with a mean of 82. The left ventriculogram revealed a good symmetric carisa ventricle with an estimated ejection fraction of 60%. There was no gradient upon pullback from the left ventricle to the aorta. ANGIOGRAPHY: 1. Right coronary artery is a dominant vessel. It has minimal luminal irregularities throughout however no significant blockages. The PDA is patent with SURINDER III flow. 2. Left main: The left main is patent with SURINDER III flow and nonobstructive coronary artery disease. 3. LAD is a transapical vessel giving off two high diagonal vessels which are patent. In the proximal LAD right out in the takeoff of S1 there is than 40% lesion in the LAD and then there is another one another 70% lesion in the mid LAD. The diagonal vessels are patent with nonobstructive coronary artery disease. 4. Left circumflex. The left circumflex is giving one big OM1 which has a 99% lesion proximally and has SURINDER I flow. This OM bifurcates in its distal segment. Then the left circumflex also has an AV groove circumflex which is patent with nonobstructive coronary artery disease. 5. Ramus. Small vessel which is patent with SURINDER III flow. No blockages appreciated. CONCLUSIONS: 1. Two-vessel coronary artery disease status post successful percutaneous coronary intervention / drug-eluting stent to OM1 and mid left anterior descending in the setting of a NSTEMI. 2. Preserved left ventricular systolic function. RECOMMENDATIONS: The patient will be going to the [facility] for post cath care. She will continue dual antiplatelet agents with aspirin and Effient, Angiomax infusion will continue for the next four hours. Continue aggressive medical management for coronary artery disease including the beta blockers, ROSE inhibitors, statins. After bed rest, he should be able to get out of bed and ambulate. MD EZEKIEL Jenkins/MITCH /1:24 PM /5:32 PM PERNELL
[2016-08-12] VITALS (18 sets, daily range): BP systolic 100–137; BP diastolic 56–78; PULSE 48–60; RESP 18–20; TEMP 97.8–98.4; O2SAT 95–96
--- NOTE | 2016-08-12 08:41 | PD.CARD.PN ---
Subjective Subjective Remarks no complaints no overnight events no tele events ambulating without difficulty Objective Medications Current Medications Medications (Trade) Dose Ordered Sig/Liliane Route Start Time Stop Time Status Last Admin (NS Flush) 2 ml UNSCH PRN IVF 08/10/16 21:30 08/10/16 21:51 (Heparin Inj) 5,000 units UNSCH PRN IV 08/11/16 06:00 Heparin Sodium (Porcine) 2500 units 2,500 units UNSCH PRN IV 08/11/16 06:00 (Heparin-D5W Inj) 250 ml @ 0 mls/hr TITRATE IV 08/11/16 00:00 08/11/16 00:21 (Ecotrin Ec) 81 mg DAILY PO 08/11/16 09:00 08/11/16 10:02 (Pravachol) 40 mg DAILY PO 08/11/16 09:00 08/11/16 10:02 (Lopressor) 25 mg Q12HR PO 08/11/16 09:00 08/11/16 21:33 (Nitroglycerin 2% Oint) 0.5 inch Q6HR PRN TOPICAL 08/11/16 00:00 (NS Flush) 2 ml UNSCH PRN IV FLUSH 08/11/16 00:00 (NS Flush) 2 ml BID IV FLUSH 08/11/16 09:00 08/11/16 21:34 (Zofran Inj) 4 mg Q6H PRN IVP 08/11/16 00:00 (Tylenol) 650 mg Q6H PRN PO 08/11/16 00:00 (Procious 5-325 Mg) 1 tab Q4H PRN PO 08/11/16 00:00 (Morphine Inj) 2 mg Q3H PRN IV 08/11/16 00:00 08/11/16 11:02 (Taisha-Colace) 1 tab BID PO 08/11/16 09:00 08/11/16 10:03 (Milk Of Magnesia Liq) 30 ml Q12H PRN PO 08/11/16 00:00 (Senokot) 17.2 mg Q12H PRN PO 08/11/16 00:00 (Dulcolax Supp) 10 mg DAILY PRN RECTAL 08/11/16 00:00 (Lactulose Liq) 30 ml DAILY PRN PO 08/11/16 00:00 (Effient) 10 mg DAILY PO 08/12/16 09:00 (Atropine Inj) 0.5 mg UNSCH PRN IV 08/11/16 13:30 (Zofran Inj) 4 mg Q4H PRN IV 08/11/16 13:30 Vital Signs / I&O Vital Signs Date Time Temp Pulse Resp B/P Pulse Ox O2 Delivery O2 Flow Rate FiO2 08/12/16 08:01 97.8 56 20 114/71 96 08/12/16 06:00 51 08/12/16 05:00 50 08/12/16 04:00 Room Air 08/12/16 04:00 98.4 51 18 100/56 95 08/12/16 04:00 51 08/12/16 03:00 50 08/12/16 02:00 57 08/12/16 01:00 52 08/12/16 00:00 60 08/12/16 00:00 98.0 50 18 117/60 96 08/12/16 00:00 Room Air 08/11/16 23:00 54 08/11/16 22:00 57 08/11/16 21:00 60 08/11/16 20:00 62 08/11/16 20:00 98.1 62 20 140/72 97 08/11/16 18:00 54 08/11/16 17:00 54 08/11/16 16:00 52 08/11/16 16:00 97.8 51 20 131/68 08/11/16 15:01 58 08/11/16 14:00 68 08/11/16 13:00 62 08/11/16 12:00 60 08/11/16 12:00 60 20 140/86 99 08/11/16 11:00 52 08/11/16 10:00 58 08/11/16 09:00 60 I/O 08/11/16 08/11/16 08/11/16 08/12/16 08/12/16 08/12/16 07:00 15:00 23:00 07:00 15:00 23:00 Intake Total 100 ml 400 ml 490 ml Output Total 200 ml 400 ml 650 ml Balance -100 ml 0 ml -160 ml Intake Oral 100 ml 200 ml 480 ml IV Total 200 ml 10 ml Output Urine Total 200 ml 400 ml 650 ml # Voids 3 # Bowel Movements 1 0 Physical Exam GENERAL: Well-nourished, well-developed patient. SKIN: Warm and dry. HEAD: Normocephalic. EYES: No scleral icterus. No injection or drainage. NECK: Supple, trachea midline. No JVD or lymphadenopathy. CARDIOVASCULAR: Regular rate and rhythm without murmurs, gallops, or rubs. RESPIRATORY: Breath sounds equal bilaterally. No accessory muscle use. GASTROINTESTINAL: Abdomen soft, non-tender, nondistended. EXTREMITIES: No cyanosis, or edema. NEUROLOGICAL: Awake, alert, and oriented x 3. Non-focal. Laboratory Laboratory Tests Test 08/11/16 11:19 White Blood Count 8.2 TH/MM3 Red Blood Count 4.87 MIL/MM3 Hemoglobin 14.9 GM/DL Hematocrit 43.6 % Mean Corpuscular Volume 89.4 FL Mean Corpuscular Hemoglobin 30.7 PG Mean Corpuscular Hemoglobin 34.3 % Concent Red Cell Distribution Width 13.6 % Platelet Count 298 TH/MM3 Mean Platelet Volume 8.3 FL Neutrophils (%) (Auto) 60.7 % Lymphocytes (%) (Auto) 28.3 % Monocytes (%) (Auto) 6.6 % Eosinophils (%) (Auto) 2.8 % Basophils (%) (Auto) 1.6 % Neutrophils # (Auto) 5.0 TH/MM3 Lymphocytes # (Auto) 2.3 TH/MM3 Monocytes # (Auto) 0.5 TH/MM3 Eosinophils # (Auto) 0.2 TH/MM3 Basophils # (Auto) 0.1 TH/MM3 CBC Comment DIFF FINAL Differential Comment Hematology Comments Activated Partial 41.3 SEC Thromboplast Time Sodium Level 141 MEQ/L Potassium Level 3.7 MEQ/L Chloride Level 106 MEQ/L Carbon Dioxide Level 23.0 MEQ/L Anion Gap 12 MEQ/L Blood Urea Nitrogen 10 MG/DL Creatinine 0.53 MG/DL Estimat Glomerular Filtration 116 ML/MIN Rate Random Glucose 111 MG/DL Calcium Level 8.9 MG/DL Total Bilirubin 0.6 MG/DL Aspartate Amino Transf 23 U/L (AST/SGOT) Alanine Aminotransferase 19 U/L (ALT/SGPT) Alkaline Phosphatase 122 U/L Troponin I 1.84 NG/ML Total Protein 6.8 GM/DL Albumin 3.6 GM/DL Imaging Last Impressions Chest X-Ray 08/10/162123 Signed Impressions: Service Date/Time: Wednesday, August 10, 2016 21:29 - CONCLUSION: 1. Minimal basilar atelectasis. Cardiomegaly. No pneumothorax. Kike Fischer MD Assessment and Plan Problem List: (1) NSTEMI (non-ST elevated myocardial infarction) Assessment and Plan: NSTEMI s/p PCI/NAVID to OM an LAD. Doing well. No complaints or overnight events. Tolerating medication and ambulating without difficulty. Recs: 1. DAPT with ASA and Effient 2. Cont statin, BB and ACEi 3. 2 D Echo today to assess LV function 4. Encourage out of bed to chair If continues to be stable thru out the day, she can be discharge home with follow up with me in 1 week. (2) HTN (hypertension) (3) Hyperlipidemia Gab Echevarria MD Aug 12, 2016 08:41
[2016-08-12] MEDS: DOCUSATE SODIUM 50 MG/SENNA 8.6 MG TAB PO SCH (09:00)
[2016-08-12] MEDS ORDERED: PRASUGREL 10 MG TAB PO SCH (09:00)
--- NOTE | 2016-08-12 09:47 | EKG ---
Date Performed: 08/11/2016 Time Performed: 10:26:32 PTAGE: 66 years EKG: Sinus bradycardia Prolonged QT interval Inferior/lateral ST-T changes are nonspecific Borde rline ECG PREVIOUS TRACING : 08/10/2016 21.18 DOCTOR: Luis Maloney Interpretating Date/Time 08/12/2016 09:38:29
--- NOTE | 2016-08-12 10:01 | EKG ---
Date Performed: 08/10/2016 Time Performed: 21:18:50 PTAGE: 66 years EKG: SINUS BRADYCARDIA MINIMAL ST DEPRESSION BORDERLINE ECG NO PREVIOUS TRACING DOCTOR: Luis Maloney Interpretating Date/Time 08/12/2016 09:48:22
[2016-08-12] MEDS: SODIUM CHLORIDE 0.9% FLUSH 10 ML FLUSH IV FLUSH SCH (10:03)
[2016-08-12] MEDS: METOPROLOL TARTRATE 25 MG TAB PO SCH (10:03)
[2016-08-12] MEDS: PRAVASTATIN SOD 40 MG TAB PO SCH (10:03)
[2016-08-12] MEDS: ASPIRIN EC 81 MG TABEC PO SCH (10:03)
--- NOTE | 2016-08-12 11:54 | HHI.PR ---
Objective Vitals Vital Signs Date Time Temp Pulse Resp B/P Pulse Ox O2 Delivery O2 Flow Rate FiO2 08/12/16 11:24 98.4 50 20 137/78 96 08/12/16 08:01 97.8 56 20 114/71 96 08/12/16 06:00 51 08/12/16 05:00 50 08/12/16 04:00 Room Air 08/12/16 04:00 98.4 51 18 100/56 95 08/12/16 04:00 51 08/12/16 03:00 50 08/12/16 02:00 57 08/12/16 01:00 52 08/12/16 00:00 60 08/12/16 00:00 98.0 50 18 117/60 96 08/12/16 00:00 Room Air 08/11/16 23:00 54 08/11/16 22:00 57 08/11/16 21:00 60 08/11/16 20:00 62 08/11/16 20:00 98.1 62 20 140/72 97 08/11/16 18:00 54 08/11/16 17:00 54 08/11/16 16:00 52 08/11/16 16:00 97.8 51 20 131/68 08/11/16 15:01 58 08/11/16 14:00 68 08/11/16 13:00 62 08/11/16 12:00 60 08/11/16 12:00 60 20 140/86 99 I/O 08/11/16 08/11/16 08/11/16 08/12/16 08/12/16 08/12/16 07:00 15:00 23:00 07:00 15:00 23:00 Intake Total 100 ml 400 ml 490 ml Output Total 200 ml 400 ml 650 ml Balance -100 ml 0 ml -160 ml Intake Oral 100 ml 200 ml 480 ml IV Total 200 ml 10 ml Output Urine Total 200 ml 400 ml 650 ml # Voids 3 # Bowel Movements 1 0 Result Diagram: 08/11/16 1119 08/11/16 1119 A/P Problem List: (1) NSTEMI (non-ST elevated myocardial infarction) ICD Code: I21.4 Status: Acute (2) Chest pain ICD Code: R07.9 Status: Acute (3) HTN (hypertension) ICD Code: I10 Status: Acute Kathy Lennon MD Aug 12, 2016 11:54
[2016-08-12] MEDS ORDERED: FLUT50SP NASAL (12:10)
[2016-08-12] MEDS ORDERED: METO25TA3 PO (12:10)
[2016-08-12] MEDS ORDERED: PRAV40TA PO (12:10)
[2016-08-12] MEDS ORDERED: ASPI-99 PO (12:10)
[2016-08-12] MEDS ORDERED: PRAS10TA PO (12:10)
[2016-08-12] MEDS ORDERED: FLUTICASONE PROPIONATE 50 MCG/ACT 16 GM NASAL SPRAY NASAL SCH ×2 (12:15→21:00)
--- NOTE | 2016-08-12 12:15 | HHI.DCPOC ---
Discharge Care Plan Diagnosis: (1) NSTEMI (non-ST elevated myocardial infarction) (2) HTN (hypertension) (3) Chest pain Goals to Promote Your Health * To prevent worsening of your condition and complications * To maintain your health at the optimal level Directions to Meet Your Goals Take your medications as prescribed Follow your dietary instruction Follow activity as directed Keep your appointments as scheduled Take your immunizations and boosters as scheduled If your symptoms worsen call your PCP, if no PCP go to Urgent Care Center or Emergency Room Smoking is Dangerous to Your Health. Avoid second hand smoke Call the 24-hour hour crisis hotline for domestic abuse at Kathy Lennon MD Aug 12, 2016 12:15
--- NOTE | 2016-08-12 12:16 | HHI.DS ---
Discharge Summary Admission Date Aug 10, 2016 at 23:57 Discharge Date: Aug 12, 2016 Admitting Diagnosis NSTEMI (1) NSTEMI (non-ST elevated myocardial infarction) ICD Code: I21.4 (2) Chest pain ICD Code: R07.9 (3) HTN (hypertension) ICD Code: I10 Procedures Heart catheterization with stent placement Brief History - From Admission History of present illness from the admitting physician This is a 66-year-old female with a PMH of Hyperlipidemia and Basal Cell Ca who presented to the ER with complaints of chest pain x1 wk. States symptoms have been intermittent w/ occasional radiation to left neck, not associated w/ exertion. No h/o similar symptoms in the past. Denies fever, chills or cough. On arrival, BP 209/103, HR 72, O2 sat 97% on RA, Afebrile. CBC unremarkable. Chemistry essentially unremarkable except for GFR 81. Troponin 0.09. INR 1.0. CXR with minimal basilar atelectasis. EKG w/ minimal ST depressions. Dr. Fischer consulted by ER physician, will evaluate. Currently on Heparin gtt. CBC/BMP: 08/11/16 1119 08/11/16 1119 Significant Findings Laboratory Tests Test 08/10/16 08/11/16 08/11/16 21:35 04:00 11:19 Monocytes (%) (Auto) 8.1 % (0.0-8.0) Basophils (%) (Auto) 5.6 % (0.0-2.0) Basophils # (Auto) 0.5 TH/MM3 (0-0.2) Carbon Dioxide Level 32.1 MEQ/L (21.0-32.0) Estimat Glomerular Filtration 81 ML/MIN (>89) Rate Aspartate Amino Transf 14 U/L (15-37) (AST/SGOT) Alkaline Phosphatase 118 U/L 122 U/L (45-117) (45-117) Troponin I 0.09 NG/ML 1.52 NG/ML 1.84 NG/ML (0.02-0.05) (0.02-0.05) (0.02-0.05) Activated Partial 54.4 SEC 41.3 SEC Thromboplast Time (24.3-30.1) (24.3-30.1) LDL Cholesterol 117 MG/DL (0-99) Thyroid Stimulating Hormone 4.740 uIU/ML 3rd Gen (0.358-3.740) Random Glucose 111 MG/DL (74-106) Imaging Last Impressions Chest X-Ray 08/10/162123 Signed Impressions: Service Date/Time: Wednesday, August 10, 2016 21:29 - CONCLUSION: 1. Minimal basilar atelectasis. Cardiomegaly. No pneumothorax. Kike Fischer MD PE at Discharge GENERAL: This is a well-nourished, well-developed patient, in no apparent distress. CARDIOVASCULAR: Normal rate and regular rhythm without murmurs, gallops, or rubs. RESPIRATORY: Good respiratory efforts. Breath sounds equal and clear to auscultation bilaterally. GASTROINTESTINAL: Abdomen soft, non-tender, non-distended. Normal active bowel sounds MUSCULOSKELETAL: Extremities without cyanosis, or edema. NEURO: Alert & Oriented x4 to person, place, time, situation. Moves all ext x4 PSYCH: Appropriate mood and affect. Pt update on day of discharge Patient reports she is feeling great. No shortness of breath or chest pain. Anxious to go home. Hospital Course 66-year-old female admitted with NSTEMI. Patient was followed by cardiology. She underwent PCI with drug-eluting stent placement to the OM and LAD. She did well post catheterization. Patient is to continue on aspirin, Effient, statin BP went as low as 100/26 on Metoprolol 25 mg BID. Metoprolol dose decreased to 12.5 mg BID. Patient will follow up outpatient with [facility] in a week. Can start ACEI at that time if BP allows. The patient was counseled extensively regarding her heart healthy diet and compliance with medications as prescribed. Pt Condition on Discharge: Good Discharge Disposition: Discharge Home Discharge Time: > 30 minutes Discharge Instructions DIET: Follow Instructions for: Heart Healthy Diet Activities you can perform: Regular-No Restrictions Follow up Referrals: Cardiology - 1 Week with Gab Echevarria MD New Medications: Aspirin DR (Adult Aspirin EC Low Strength) 81 Mg Tabec 81 MG PO DAILY #30 TAB Fluticasone Nasal [place] (Fluticasone Nasal [place]) 50 Mcg/Act Naspr 1 SPRAY NASAL BID #1 BOTTLE Metoprolol Tartrate (Metoprolol Tartrate) 25 Mg Tab 12.5 MG PO Q12HR #30 TAB Prasugrel (Effient) 10 Mg Tab 10 MG PO DAILY #30 TAB Pravastatin (Pravachol) 40 Mg Tab 40 MG PO DAILY #30 TAB Kathy Lennon MD Aug 12, 2016 12:16
--- NOTE | 2016-08-12 12:49 | ECHRPT ---
Indication: coronary atherosclerosis CONCLUSIONS The left ventricular systolic function is normal with an estimated ejection fraction in the range of 55-60%. Doppler parameters are consistent with impaired left ventricular relaxtion (grade 1 diastolic dysfun ction). Hypokinetic mid-inferolateral wall motion. Hypokinetic basal inferolateral wall motion. The right ventricle was not well visualized. The interatrial septum not well visualized. Trace mitral valve regurgitation. Trace to mild aortic valve regurgitation. The aortic valve is not well visualized. Aortic valve sclerosis is present. There is trace tricuspid valve regurgitation. The pulmonary valve is not well visualized. BP: 135 / 74 HR: 69 Rhythm: Sinus MEASUREMENTS (Male / Female) Normal Values Technical Quality:Good, Fair 2D ECHO LV Diastolic Diameter PLAX 4.5 cm 4.2 - 5.9 / 3.9 - 5.3 cm LV Systolic Diameter PLAX 3.4 cm IVS Diastolic Thickness 0.7 cm 0.6 - 1.0 / 0.6 - 0.9 cm LVPW Diastolic Thickness 0.6 cm 0.6 - 1.0 / 0.6 - 0.9 cm LV Relative Wall Thickness 0.3 RV Internal Dim ED PLAX 2.1 cm DOPPLER AV Peak Velocity 137.0 cm/s AV Peak Gradient 7.5 mmHg LVOT Peak Velocity 101.0 cm/s LVOT Peak Gradient 4.1 mmHg Mitral E Point Velocity 54.8 cm/s Mitral A Point Velocity 81.4 cm/s Mitral E to A Ratio 0.7 LV E' Lateral Velocity 6.5 cm/s Mitral E to LV E' Lateral Ratio 8.4 LV E' Septal Velocity 5.4 cm/s Mitral E to LV E' Septal Ratio 10.2 TR Peak Velocity 218.0 cm/s TR Peak Gradient 19.0 mmHg FINDINGS LEFT VENTRICLE Normal left ventricular size and wall thickness. The left ventricular systolic function is normal wi th an estimated ejection fraction in the range of 55-60%. Doppler parameters are consistent with impaired left ventricular relaxtion (grade 1 diastolic dysfunction). Hypokinetic mid-inferolateral wall motion. Hypokinetic basal inferolateral wall motion. RIGHT VENTRICLE The right ventricle was not well visualized. LEFT ATRIUM The left atrial size is normal. RIGHT ATRIUM The right atrial size is normal. ATRIAL SEPTUM The interatrial septum not well visualized. AORTA The aortic root and proximal ascending aorta are normal in size on limited imaging. MITRAL VALVE Trace mitral valve regurgitation. Structurally normal mitral valve. AORTIC VALVE Trace to mild aortic valve regurgitation. The aortic valve is not well visualized. Probably Trileaflet aortic valve. Aortic valve sclerosis is present. TRICUSPID VALVE Structurally normal tricuspid valve. There is trace tricuspid valve regurgitation. PULMONARY VALVE The pulmonary valve is not well visualized. VESSELS The inferior vena cava is normal in size. PERICARDIUM No pericardial effusion. Aram Sanchez MD (Electronically Signed) Final Date:12 August 2016 12:49
[2016-08-12] MEDS ORDERED: IOHEXOL 350 MG/ML 50 ML BTL (for Cath Lab) OTHER ONE (16:25)
== END 2016-08-12 16:26 | disposition home or self-care (01) | DRG 247 ==
LOC: NEPE 21:00 → NEDA 23:57 → HCIS 08-11 02:36
PROVIDERS: ADMIT Family Medicine; ATTEND Family Medicine
PROC: 027135Z Dilation of Coronary Artery, Two Arteries with Two Drug-eluting Intraluminal Devices, Percutaneous Approach (ICD-10-PCS; principal; 2016-08-11)
PROC: 4A023N7 Measurement of Cardiac Sampling and Pressure, Left Heart, Percutaneous Approach (ICD-10-PCS; 2016-08-11)
PROC: B2111ZZ Fluoroscopy of Multiple Coronary Arteries using Low Osmolar Contrast (ICD-10-PCS; 2016-08-11)
PROC: B2151ZZ Fluoroscopy of Left Heart using Low Osmolar Contrast (ICD-10-PCS; 2016-08-11)
DX: I21.4 Non-ST elevation (NSTEMI) myocardial infarction (principal); I10 Essential (primary) hypertension; I25.10 Atherosclerotic heart disease of native coronary artery without angina pectoris; E78.5 Hyperlipidemia, unspecified; Z85.828 Personal history of other malignant neoplasm of skin
CPT/HCPCS: 71010; 80053; 80061; 82550; 83036; 83735; 84443; 84484; 85025; 85610; 85730; 92928; 92929; 93005; 93306; 93458; 96374; C1760; C1769; C1874; C1887; C1893; G0269; J0583; J1644; J2250; J2270; J3010; J7030; J7040; Q9967

== ENCOUNTER 2016-09-14 13:44 | Observation (INO) | payer OTHER ==
[2016-09-14] VITALS (9 sets, daily range): BP systolic 107–129; BP diastolic 60–79; PULSE 62–74; RESP 16–18; TEMP 97.9–98.2; O2SAT 95–99
[~2016-09-14] VITALS: Ht 160 cm; Wt 63.0 kg
[~2016-09-14 13:44] MED LIST changes: -ALL220TA PO; +ASPI-99 PO; -ESTR0.5T PO; -ESTRTAB6 PO; +FLUT50SP NASAL; -LISI-357 PO; +METO25TA3 PO; +PRAS10TA PO; +PRAV40TA PO; -REDCAP9 PO; -VITA100020 SL; -VITA200017 OR
--- NOTE | 2016-09-14 14:09 | PD ---
HPI Chief Complaint: Chest Pain Time Seen by Provider: 14:07 Travel History International Travel<30 days: No Contact w/Intl Traveler<30days: No Traveled to known affect area: No History of Present Illness HPI 66-year-old female with history of previous OK 2, presents to the ER today for 1 week history of intermittent right shoulder pains which she currently rates at a 7 out of 10. She denies any chest pains, shortness of breath, or other symptoms. 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 Fischer, and was told to come to the hospital for further evaluation. Patient states that she had atypical symptoms with her OK in the past as well. Modifying Factors: None Associated Signs & Symptoms: Right shoulder pains Risk Factors: Previous OK PFSH Past Medical History Hx Anticoagulant Therapy: Yes Cancer: No Cardiovascular Problems: Yes High Cholesterol: Yes Diabetes: No Diminished Hearing: No Endocrine: No Genitourinary: No Hepatitis: No Hiatal Hernia: No Hypertension: Yes Immune Disorder: No Musculoskeletal: No Neurologic: No Psychiatric: No Reproductive: No Respiratory: No Immunizations Current: Yes Thyroid Disease: No ?: Not Menopausal: Yes : 4 Para: 4 Miscarriage: 0 : 0 Past Surgical History Abdominal Surgery: No AICD: No Arteriovenous Shunt: No Body Medical Devices: NONE Cardiac Surgery: No Ear Surgery: No Endocrine Surgery: No Eye Surgery: No Genitourinary Surgery: No Gynecologic Surgery: No Hysterectomy: Yes Insulin Pump: No Joint Replacement: No Oral Surgery: No Pacemaker: No Thoracic Surgery: No Other Surgery: Yes (MASTOID L SURGERY 1999) Social History Alcohol Use: No Tobacco Use: No Substance Use: No Allergies-Medications (Allergen,Severity, Reaction): Coded Allergies: No Known Allergies (Unverified , 09/14/16) Reported Meds & Prescriptions Reported Meds & Active Scripts Active Pravachol (Pravastatin) 40 Mg Tab 40 Mg PO DAILY Metoprolol Tartrate 25 Mg Tab 12.5 Mg PO Q12HR Adult Aspirin EC Low Strength (Aspirin) 81 Mg Tabec 81 Mg PO DAILY Reported Plavix (Clopidogrel Bisulfate) 75 Mg Tab 75 Mg PO DAILY Review of Systems Except as stated in HPI: all other systems reviewed are Neg Physical Exam Narrative GENERAL: Well-developed elderly white female patient currently in mild distress. Awake and oriented 3. SKIN: Focused skin assessment warm/dry. HEAD: Atraumatic. Normocephalic. EYES: Pupils equal and round. No scleral icterus. No injection or drainage. ENT: No nasal bleeding or discharge. Mucous membranes pink and moist. NECK: Trachea midline. No JVD. CARDIOVASCULAR: Regular rate and rhythm. No murmur appreciated. Pulses are present and equal bilaterally. RESPIRATORY: No accessory muscle use. Clear to auscultation. Breath sounds equal bilaterally. GASTROINTESTINAL: Abdomen soft, non-tender, nondistended. Hepatic and splenic margins not palpable. MUSCULOSKELETAL: No obvious deformities. No clubbing. No cyanosis. No edema. NEUROLOGICAL: Awake and alert. No obvious cranial nerve deficits. Motor grossly within normal limits. Normal speech. PSYCHIATRIC: Appropriate mood and affect; insight and judgment normal. Data Data Last Documented VS Vital Signs Date Time Temp Pulse Resp B/P Pulse Ox O2 Delivery O2 Flow Rate FiO2 09/14/16 14:12 97 Nasal Cannula 2 09/14/16 14:12 70 16 127/72 120/71 09/14/16 13:48 98.2 Orders Electrocardiogram (09/14/16 ) Electrocardiogram (09/14/16 14:07) Ckmb (Isoenzyme) Profile (09/14/16 14:07) Complete Blood Count With Diff (09/14/16 14:07) Comprehensive Metabolic Panel (09/14/16 14:07) Magnesium (Mg) (09/14/16 14:07) Prothrombin Time / Inr (Pt) (09/14/16 14:07) Act Partial Throm Time (Ptt) (09/14/16 14:07) Troponin I (09/14/16 14:07) Chest, Single Ap (09/14/16 14:07) Ecg Monitoring (09/14/16 14:07) Bilateral Bp Monitoring (09/14/16 14:07) Iv Access Insert/Monitor (09/14/16 14:07) Oximetry (09/14/16 14:07) Oxygen Administration (09/14/16 14:07) Sodium Chloride 0.9% Flush (Ns Flush) (09/14/16 14:15) Labs Laboratory Tests Test 09/14/16 14:20 White Blood Count 8.4 TH/MM3 Red Blood Count 4.28 MIL/MM3 Hemoglobin 12.8 GM/DL Hematocrit 38.0 % Mean Corpuscular Volume 88.8 FL Mean Corpuscular Hemoglobin 29.8 PG Mean Corpuscular Hemoglobin 33.6 % Concent Red Cell Distribution Width 13.9 % Platelet Count 300 TH/MM3 Mean Platelet Volume 7.8 FL Neutrophils (%) (Auto) 53.3 % Lymphocytes (%) (Auto) 33.2 % Monocytes (%) (Auto) 7.8 % Eosinophils (%) (Auto) 4.2 % Basophils (%) (Auto) 1.5 % Neutrophils # (Auto) 4.5 TH/MM3 Lymphocytes # (Auto) 2.8 TH/MM3 Monocytes # (Auto) 0.7 TH/MM3 Eosinophils # (Auto) 0.4 TH/MM3 Basophils # (Auto) 0.1 TH/MM3 CBC Comment DIFF FINAL Differential Comment Prothrombin Time 10.9 SEC Prothromb Time International 1.0 RATIO Ratio Activated Partial 27.3 SEC Thromboplast Time Sodium Level 142 MEQ/L Potassium Level 3.8 MEQ/L Chloride Level 106 MEQ/L Carbon Dioxide Level 26.8 MEQ/L Anion Gap 9 MEQ/L Blood Urea Nitrogen 11 MG/DL Creatinine 0.78 MG/DL Estimat Glomerular Filtration 74 ML/MIN Rate Random Glucose 107 MG/DL Calcium Level 8.8 MG/DL Magnesium Level 2.0 MG/DL Total Bilirubin 0.5 MG/DL Aspartate Amino Transf 15 U/L (AST/SGOT) Alanine Aminotransferase 18 U/L (ALT/SGPT) Alkaline Phosphatase 100 U/L Total Creatine Kinase 92 U/L Troponin I LESS THAN 0.02 NG/ML Total Protein 6.7 GM/DL Albumin 3.6 GM/DL MDM Medical Decision Making Medical Screen Exam Complete: Yes Emergency Medical Condition: Yes Medical Record Reviewed: Yes Interpretation(s) EKG shows NSR, no ST elevation or depression, and no arrhythmias. No significant T-wave inversions. Laboratory Tests Test 09/14/16 14:20 Eosinophils (%) (Auto) 4.2 % (0.0-4.0) Estimat Glomerular Filtration 74 ML/MIN (>89) Rate Random Glucose 107 MG/DL (74-106) Troponin I LESS THAN 0.02 NG/ML (0.02-0.05) Last 24 hours Impressions Chest X-Ray 09/14/16 4867 Signed Impressions: Service Date/Time: Wednesday, September 14, 2016 14:22 - CONCLUSION: Slight left lung base atelectasis. Amanda Kelly MD Differential Diagnosis Right shoulder painsmusculoskeletal versus atypical chest pain/OK versus dysrhythmias versus metabolic issues Narrative Course EKG did not show changes. Cardiac enzymes are negative. Chest x-rays unremarkable. Vital signs are stable in the ER. However, patient has had atypical chest pain with her previous OK. At this point, my plan would be to admit her to chest pain center for further evaluation. Diagnosis Primary Impression: Atypical chest pain Admitting Information Admitting Physician Requests: Admit Debby Keating MD Sep 14, 2016 14:09
[2016-09-14] MEDS ORDERED: SODIUM CHLORIDE 0.9% FLUSH 10 ML FLUSH IVF PRN (14:15)
[2016-09-14] MEDS ORDERED: PLAV75TA29 PO (14:18)
--- NOTE | 2016-09-14 14:50 | RADRPT ---
EXAM DATE/TIME: 09/14/2016 14:22 [facility] COMPARISON: CHEST SINGLE AP, August 10, 2016, 21:29. INDICATIONS : Chest pain. MEDICAL HISTORY : Myocardial infarction. SURGICAL HISTORY : Cardiac stent ENCOUNTER: Initial ACUITY: 1 day PAIN SCORE: 8/10 LOCATION: Bilateral chest FINDINGS: The lungs are clear without infiltrate, nodule, or mass except for slight left lung base atelectasis. There is no appreciable pleural effusion for technique. Heart and mediastinum are unremarkable. CONCLUSION: Slight left lung base atelectasis. Amanda Kelly MD on September 14, 2016 at 14:47 Board Certified Radiologist. This report was verified electronically.
[2016-09-14 15:03] LABS: ANION GAP 9 MEQ/L (5-15); AST (GOT) 15 U/L (15-37); BICARBONATE 26.8 MEQ/L (21.0-32.0); BLOOD UREA NITROGEN 11 MG/DL (7-18); CHLORIDE 106 MEQ/L (98-107); GLOMERULAR FILTRATION RATE 74 ML/MIN (>89); POTASSIUM 3.8 MEQ/L (3.5-5.1); SODIUM (NA) 142 MEQ/L (136-145)
[2016-09-14 15:04] LABS: APTT (PATIENT) 27.3 SEC (24.3-30.1); PROTHROMBIN TIME - PATIENT 10.9 SEC (9.8-11.6)
[2016-09-14 15:08] LABS: ALKALINE PHOSPHATASE 100 U/L (45-117); ALT (GPT) 18 U/L (10-53); TOTAL BILIRUBIN ADULT 0.5 MG/DL (0.2-1.0)
[2016-09-14 15:20] LABS: AUTOMATED NEUTROPHIL # 4.5 TH/MM3 (1.8-7.7); BASOPHIL # 0.1 TH/MM3 (0-0.2); BASOPHIL % 1.5 % (0.0-2.0); EOSINOPHIL # 0.4 TH/MM3 (0-0.4); EOSINOPHIL % 4.2 % (0.0-4.0); HEMO FLAGS DIFF FINAL; LYMPH % 33.2 % (9.0-44.0); LYMPHOCYTE # 2.8 TH/MM3 (1.0-4.8); MEAN CELL VOLUME 88.8 FL (80.0-100.0); MEAN CORPUSCULAR HEMOGLOBIN 29.8 PG (27.0-34.0); MEAN CORPUSCULAR HGB CONC 33.6 % (32.0-36.0); MONO % 7.8 % (0.0-8.0); NEUT % 53.3 % (16.0-70.0); PLATELET COUNT 300 TH/MM3 (150-450); RED BLOOD COUNT 4.28 MIL/MM3 (4.00-5.30); RED CELL DISTRIBUTION WIDTH 13.9 % (11.6-17.2); WHITE BLOOD COUNT 8.4 TH/MM3 (4.0-11.0)
[2016-09-14 15:29] LABS: CREATINE KINASE 92 U/L (26-192)
[2016-09-14] MEDS ORDERED: ACETAMINOPHEN/HYDROcodone 325 MG/7.5 MG TAB PO PRN (16:45)
[2016-09-14] MEDS ORDERED: RESP: ALBUTEROL 2.5 MG/IPRATROPIUM 0.5 MG NEB (PRN) INH (16:45)
[2016-09-14] MEDS ORDERED: ONDANSETRON HCL 4 MG/2 ML VIAL IV PRN (16:45)
[2016-09-14] MEDS ORDERED: cloNIDine HCL 0.1 MG TAB PO PRN (16:45)
[2016-09-14] MEDS ORDERED: SODIUM CHLORIDE 0.9% FLUSH 10 ML FLUSH IV FLUSH PRN (16:45)
[2016-09-14] MEDS ORDERED: ALPRAZolam 0.25 MG TAB PO PRN (16:45)
[2016-09-14] MEDS ORDERED: ACETAMINOPHEN 500 MG CPLT PO PRN (16:45)
--- NOTE | 2016-09-14 16:53 | HHI.HP ---
[facility] Primary Care Physician Carmelita Ngo M.D. Chief Complaint Right upper back and shoulder pain History of Present Illness This is a 66-year-old female with history of CAD being a non-STEMI August 10, 2016 and needing 2 stents August 11, 2016 that presents to ED complaining of 4 days of intermittent right upper back and shoulder discomfort. She states that when it occurs it can last for hours or throughout the day and to the night. When it is present it is worsened with certain movements including twisting of the torso , movement of her right arm, and sitting upright from a supine or semi-supine position. She last had this discomfort this morning and lasted a few hours. Currently denies any discomfort. She denies associated symptoms of shortness of breath, nausea, or diaphoresis. She denies having chest discomfort. She states she had no chest discomfort when she was a non-STEMI last month. She was having numbness in her arms and was very fatigued. She states she didn't have energy to do very basic activities. This has not been occurring since having her stents. She has followed up with Dr. Fischer in his office since her cardiac catheterization. Denies recent illness. Denies fevers or chills. She cannot recall anything that she may have done to hurt her back or shoulder. Patient states she has been compliant with her medications. Review of Systems General: Patient denies fevers, chills recent, and recent travel HEENT: Patient denies headache, sore throat, difficulty swallowing. Cardiovascular: Has the chest discomfort as mentioned above. Denies sensation of heart beating rapidly or irregularly. No syncope. Denies diaphoresis. Respiratory: Denies shortness of breath or inspirational chest discomfort. Denies coughing wheezing or hemoptysis. GI: Patient denies nausea, vomiting, diarrhea, abdominal pain, bloody stools. Musculoskeletal: Patient is complaining of upper back/right shoulder discomfort intermittently for the last 4 days. Patient denies joint edema. Denies calf pain or edema. Neurovascular: Patient denies numbness, tingling, weakness in extremities. Denies headache. Endocrine: Denies polyuria and polydipsia. Hematologic: Denies easy bruising. Skin: Denies rash or itching. Past Family Social History Allergies: Coded Allergies: No Known Allergies (Unverified , 09/14/16) Past Medical History Patient was a non-STEMI August 10, 2016 and had a stent to the first obtuse marginal as well as the mid LAD performed by Dr. Fischer on August 11. History of hypertension and hyperlipidemia. Denies diabetes. Past Surgical History Cardiac catheterization with intervention August 11, 2016. Left mastoid surgery in 1999. Reported Medications Reported Meds & Active Scripts Active Pravachol (Pravastatin) 40 Mg Tab 40 Mg PO DAILY Metoprolol Tartrate 25 Mg Tab 12.5 Mg PO Q12HR Adult Aspirin EC Low Strength (Aspirin) 81 Mg Tabec 81 Mg PO DAILY Reported Plavix (Clopidogrel Bisulfate) 75 Mg Tab 75 Mg PO DAILY Active Ordered Medications Current Medications Medications (Trade) Dose Ordered Sig/Liliane Route Start Time Stop Time Status Last Admin (NS Flush) 2 ml UNSCH PRN IVF 09/14/16 14:15 (NS Flush) 2 ml UNSCH PRN IVF 09/14/16 16:45 UNV (NS Flush) 2 ml BID IVF 09/14/16 21:00 UNV (Sunray 7.5-325 Mg) 1 tab Q4H PRN PO 09/14/16 16:45 UNV Family History There is family history of CAD. Social History Patient is a nonsmoker. Denies alcohol or illicit drugs. Physical Exam Vital Signs Vital Signs Date Time Temp Pulse Resp B/P Pulse Ox O2 Delivery O2 Flow Rate FiO2 09/14/16 15:00 64 18 122/65 99 Nasal Cannula 2 09/14/16 14:12 97 Nasal Cannula 2 09/14/16 14:12 70 16 127/72 120/71 09/14/16 14:12 97 Nasal Cannula 2 09/14/16 14:12 Room Air 09/14/16 13:48 98.2 74 17 125/79 96 Room Air Physical Exam GENERAL: This is a well-nourished, well-developed patient, in no apparent distress. Patient speaks in clear complete sentences. Patient is pleasant. HEENT: Head is atraumatic and normocephalic. Neck is supple without lymphadenopathy and trachea is midline. No JVD or carotid bruits. CARDIOVASCULAR: Regular rate and rhythm without murmurs, gallops, or rubs. RESPIRATORY: Clear to auscultation. Breath sounds equal bilaterally. No wheezes , rales, or rhonchi. Chest wall is nontender however upper back just medial of the right scapula is tender. No use of accessory muscles. GASTROINTESTINAL: Abdomen is nontender, nondistended. Abdomen soft. No obvious pulsatile mass or bruit. No CVA tenderness. Strong femoral pulses bilaterally. Normal bowel sounds in all quadrants. MUSCULOSKELETAL: Patient is moving upper and lower extremities freely however there is discomfort with range of motion of her right arm. There is discomfort bringing her right arm across her chest reproducing a discomfort in her back and shoulder. No spinous process point tenderness in palpating cervical, thoracic, lumbar spine. Strong shirrer strength bilaterally.. No calf tenderness or edema, no Homans sign. Strong pulses in upper and lower extremities. NEUROLOGICAL: Patient is alert and oriented. Cranial nerves 2-12 are grossly intact. No focal deficits and speech is clear. Strong shirrer strength bilaterally. SKIN: No rash and turgor is normal. Laboratory Laboratory Tests Test 09/14/16 14:20 White Blood Count 8.4 Red Blood Count 4.28 Hemoglobin 12.8 Hematocrit 38.0 Mean Corpuscular Volume 88.8 Mean Corpuscular Hemoglobin 29.8 Mean Corpuscular Hemoglobin 33.6 Concent Red Cell Distribution Width 13.9 Platelet Count 300 Mean Platelet Volume 7.8 Neutrophils (%) (Auto) 53.3 Lymphocytes (%) (Auto) 33.2 Monocytes (%) (Auto) 7.8 Eosinophils (%) (Auto) 4.2 Basophils (%) (Auto) 1.5 Neutrophils # (Auto) 4.5 Lymphocytes # (Auto) 2.8 Monocytes # (Auto) 0.7 Eosinophils # (Auto) 0.4 Basophils # (Auto) 0.1 CBC Comment DIFF FINAL Differential Comment Prothrombin Time 10.9 Prothromb Time International 1.0 Ratio Activated Partial 27.3 Thromboplast Time Sodium Level 142 Potassium Level 3.8 Chloride Level 106 Carbon Dioxide Level 26.8 Anion Gap 9 Blood Urea Nitrogen 11 Creatinine 0.78 Estimat Glomerular Filtration 74 Rate Random Glucose 107 Calcium Level 8.8 Magnesium Level 2.0 Total Bilirubin 0.5 Aspartate Amino Transf 15 (AST/SGOT) Alanine Aminotransferase 18 (ALT/SGPT) Alkaline Phosphatase 100 Total Creatine Kinase 92 Troponin I LESS THAN 0.02 Total Protein 6.7 Albumin 3.6 Result Diagram: 09/14/16 1420 09/14/16 1420 Imaging Last 48 hours Impressions Chest X-Ray 09/14/16 1407 Signed Impressions: Service Date/Time: Wednesday, September 14, 2016 14:22 - CONCLUSION: Slight left lung base atelectasis. Amanda Kelly MD Course Initial EKG is sinus rhythm with nonspecific lateral ST-T changes. Assessment and Plan Assessment and Plan * Right shoulder/back pain: Patient will continue to have serial cardiac enzymes and EKGs for ruling out purposes. Her discomfort appears to be musculoskeletal on my examination. I discussed this with her ice sculptor Dr. Fischer and he states that if her symptoms appear to be musculoskeletal and she can be discharged without stress testing and he will see her in the office. Patient will be seen by Dr. Freeman of cardiology in the chest pain center and if he feels that her discomfort also is musculoskeletal in nature that she will likely be discharged home with instructions to follow-up with her primary care physician as well as her ice sculptor. Patient will continue her medications. * CAD: Patient will continue current medications and follow-up with her ice sculptor. * Hypertension: Continue current medication. * Hyperlipidemia: Continue current medication. Patient is stable at this time. She is agreeable to this plan. Manav Florez Sep 14, 2016 16:53
[2016-09-14] MEDS ORDERED: PILL SPLITTER OTHER PRN (17:30)
[2016-09-14] MEDS: PANTOPRAZOLE SOD 40 MG DELAYED RELEASE TAB PO SCH (18:44)
[2016-09-14 19:12] LABS: CREATINE KINASE 77 U/L (26-192)
[2016-09-14] MEDS: SODIUM CHLORIDE 0.9% FLUSH 10 ML FLUSH IV FLUSH SCH (21:00)
[2016-09-14] MEDS: METOPROLOL TARTRATE 25 MG TAB PO SCH (21:00)
[2016-09-14 21:54] LABS: CREATINE KINASE 73 U/L (26-192)
[2016-09-15 00:15] VITALS: PULSE 52
[2016-09-15 04:01] VITALS: PULSE 63
[2016-09-15 05:52] VITALS: BP 102/59; PULSE 53; RESP 18; TEMP 97.8; O2SAT 98
[2016-09-15 07:01] VITALS: PULSE 57
[2016-09-15] MEDS ORDERED: CLOPIDOGREL 75 MG TAB PO SCH (09:00)
[2016-09-15] MEDS: METOPROLOL TARTRATE 25 MG TAB PO SCH (09:00)
[2016-09-15] MEDS ORDERED: ASPIRIN 325 MG TAB PO SCH (09:00)
[2016-09-15] MEDS ORDERED: PRAVASTATIN SOD 40 MG TAB PO SCH (09:00)
[2016-09-15] MEDS: PANTOPRAZOLE SOD 40 MG DELAYED RELEASE TAB PO SCH (09:10)
[2016-09-15] MEDS: SODIUM CHLORIDE 0.9% FLUSH 10 ML FLUSH IV FLUSH SCH (09:10)
--- NOTE | 2016-09-15 09:11 | HHI.DCPOC ---
Discharge Care Plan Diagnosis: (1) Musculoskeletal arm pain (2) Hx of coronary artery disease Goals to Promote Your Health * To prevent worsening of your condition and complications * To maintain your health at the optimal level Directions to Meet Your Goals Take your medications as prescribed Follow your dietary instruction Follow activity as directed Keep your appointments as scheduled Take your immunizations and boosters as scheduled If your symptoms worsen call your PCP, if no PCP go to Urgent Care Center or Emergency Room Smoking is Dangerous to Your Health. Avoid second hand smoke Call the 24-hour hour crisis hotline for domestic abuse at Billie Bocanegra Sep 15, 2016 09:11
--- NOTE | 2016-09-15 09:13 | PD.CARD.PN ---
Subjective Subjective Remarks CARDIOLOGY ATTENDING NOTE REVIEWED AND EXAMINED WITH FISHER CLAM HPI: 72 yo lady who had a hx of NSTEMI presented with atypical CP yesterday. she believed it to be MS pain but was directed to the ED by Dr. Alvarez' s office. Case has been discussed with him. Her pain is R posterior under the clavicle typical of MS pain. She has RO and is feeling well. O: NECK no JVD, M, N, B CHEST CLEAR TO AP NO RWR CV RSR NO GRM ABD OLD SCAR NO GR OR MASS EKG NEG X 3 CXR ATELECTASIS ONLY LAB NEG X 3 A: HAS RO FOR ACS. PAIN PROBABLY MS SECONDARY TO PULLING WEEDS. P: OK TO DISCHARGE TO FU OP WITH DO ALVAREZ. Objective Vital Signs / I&O Vital Signs Date Time Temp Pulse Resp B/P Pulse Ox O2 Delivery O2 Flow Rate FiO2 09/15/16 07:01 57 09/15/16 05:52 97.8 53 18 102/59 98 09/15/16 04:01 63 09/15/16 00:15 52 09/14/16 23:37 98.0 67 18 129/60 98 09/14/16 21:34 97.9 62 18 107/62 95 09/14/16 21:28 65 09/14/16 19:45 95 09/14/16 18:03 64 16 109/68 98 09/14/16 16:00 65 16 112/68 98 Room Air 09/14/16 15:00 64 18 122/65 99 Nasal Cannula 2 09/14/16 14:12 97 Nasal Cannula 2 09/14/16 14:12 70 16 127/72 120/71 09/14/16 14:12 97 Nasal Cannula 2 09/14/16 14:12 Room Air 09/14/16 13:48 98.2 74 17 125/79 96 Room Air I/O 09/14/16 09/14/16 09/14/16 09/15/16 09/15/16 09/15/16 07:00 15:00 23:00 07:00 15:00 23:00 Intake Total 480 ml Balance 480 ml Intake Oral 480 ml # Voids 1 Laboratory Laboratory Tests Test 09/14/16 09/14/16 09/14/16 14:20 18:00 20:30 White Blood Count 8.4 TH/MM3 Red Blood Count 4.28 MIL/MM3 Hemoglobin 12.8 GM/DL Hematocrit 38.0 % Mean Corpuscular Volume 88.8 FL Mean Corpuscular Hemoglobin 29.8 PG Mean Corpuscular Hemoglobin 33.6 % Concent Red Cell Distribution Width 13.9 % Platelet Count 300 TH/MM3 Mean Platelet Volume 7.8 FL Neutrophils (%) (Auto) 53.3 % Lymphocytes (%) (Auto) 33.2 % Monocytes (%) (Auto) 7.8 % Eosinophils (%) (Auto) 4.2 % Basophils (%) (Auto) 1.5 % Neutrophils # (Auto) 4.5 TH/MM3 Lymphocytes # (Auto) 2.8 TH/MM3 Monocytes # (Auto) 0.7 TH/MM3 Eosinophils # (Auto) 0.4 TH/MM3 Basophils # (Auto) 0.1 TH/MM3 CBC Comment DIFF FINAL Differential Comment Prothrombin Time 10.9 SEC Prothromb Time International 1.0 RATIO Ratio Activated Partial 27.3 SEC Thromboplast Time Sodium Level 142 MEQ/L Potassium Level 3.8 MEQ/L Chloride Level 106 MEQ/L Carbon Dioxide Level 26.8 MEQ/L Anion Gap 9 MEQ/L Blood Urea Nitrogen 11 MG/DL Creatinine 0.78 MG/DL Estimat Glomerular Filtration 74 ML/MIN Rate Random Glucose 107 MG/DL Calcium Level 8.8 MG/DL Magnesium Level 2.0 MG/DL Total Bilirubin 0.5 MG/DL Aspartate Amino Transf 15 U/L (AST/SGOT) Alanine Aminotransferase 18 U/L (ALT/SGPT) Alkaline Phosphatase 100 U/L Total Creatine Kinase 92 U/L 77 U/L 73 U/L Troponin I LESS THAN 0.02 LESS THAN 0.02 LESS THAN 0.02 NG/ML NG/ML NG/ML Total Protein 6.7 GM/DL Albumin 3.6 GM/DL Ramon Freeman MD Sep 15, 2016 09:13
--- NOTE | 2016-09-15 10:13 | EKG ---
Date Performed: 09/14/2016 Time Performed: 21:04:21 PTAGE: 66 years EKG: Sinus rhythm NONSPECIFIC T-WAVE ABNORMALITY BORDERLINE ECG BUT UNCHANGED FROM PRIOR PREVIOUS TRACING : 09/14/2016 17.59 DOCTOR: Ramon Freeman Interpretating Date/Time 09/15/2016 10:11:16
--- NOTE | 2016-09-15 10:13 | EKG ---
Date Performed: 09/14/2016 Time Performed: 17:59:02 PTAGE: 66 years EKG: Sinus rhythm NONSPECIFIC T-WAVE ABNORMALITY BORDERLINE ECG NO SIG CHANGE PREVIOUS TRACING : 09/14/2016 14.08 DOCTOR: Ramon Freeman Interpretating Date/Time 09/17/2016 07:08:23
--- NOTE | 2016-09-15 10:14 | EKG ---
Date Performed: 09/14/2016 Time Performed: 14:08:25 PTAGE: 66 years EKG: Sinus rhythm LOW QRS VOLTAGE IN PRECORDIAL LEADS NONSPECIFIC ST & T-WAVE ABNORMALITY BORDERLINE ECG NO SIG CHANGE PREVIOUS TRACING : 08/11/2016 10.26 DOCTOR: Ramon Freeman Interpretating Date/Time 09/15/2016 10:13:27
== END 2016-09-15 11:08 | disposition home or self-care (01) ==
LOC: NEPE 13:44 → NEDA 15:54 → NEPFCDU 19:22
PROVIDERS: ADMIT Internal Medicine Cardiovascular Disease; ATTEND Internal Medicine Cardiovascular Disease
DX: M79.601 Pain in right arm (principal); M25.511 Pain in right shoulder; M54.9 Dorsalgia, unspecified; R20.0 Anesthesia of skin; R53.83 Other fatigue; I25.10 Atherosclerotic heart disease of native coronary artery without angina pectoris; I10 Essential (primary) hypertension; E78.5 Hyperlipidemia, unspecified; E78.00 Pure hypercholesterolemia, unspecified; I25.2 Old myocardial infarction; Z79.899 Other long term (current) drug therapy; Z79.02 Long term (current) use of antithrombotics/antiplatelets; Z95.5 Presence of coronary angioplasty implant and graft; Z82.49 Family history of ischemic heart disease and other diseases of the circulatory system
CPT/HCPCS: 71010; 80053; 82550; 83735; 84484; 85025; 85610; 85730; 93005; 99285; G0378